=== PATIENT | female | born 1940 | race Two or more races ===

== ENCOUNTER 2017-01-18 19:03 | Inpatient (IN) | payer OTHER, MEDICARE ==
[~2017-01-18] VITALS: Ht 157.5 cm; Wt 47.6 kg
--- NOTE | 2017-01-18 03:59 | NUR ---
RN NOTES PATIENT RECIEVED FROM ER, AWAKE NONVERBAL, VERY LETHERGIC, NON RESPONSIVE, ON 2L NASAL CANULAR NO SINGN OF FACIAL GRAMANCING, HEAD TO TOE ASSESSMENT COMPLETED, SKIN CHECK DONE NOTED WITH BUE AND BLE SKIN DISCOLORATION, SEEN BY YURIY LUNDBERG AND FAMILY UPDATED ON THE CURRENT TREATMENTS ORDERED, PATIENT KEPT CLEAN AND DRY, WELL REPOSITIONED.
--- NOTE | 2017-01-18 19:20 | NUR ---
PT ROD FROM [facility] FOR "MORE ALTERED THAN USUAL" PT NONVERBAL. RR EVEN AND UNLABORED. NO SOB NOTED. NAD NOTED. NO NVD AT THIS TIME. PT NOT DIAPHORETIC. PT GOWNED AND PLACED ON MONITOR. PT NOTED WITH MIDLINE ON RIGHT UPPER ARM. NO S/S INFECTION. PT NOTED WITH GTUBE INTACT AND PATENT. NO S/S INFECTION. PT NOTED WITH LEFT ARM HD SITE, BRUIT AND THRILL NOTED. UNKNOWN LAST HD. PT AFIBRILE DR LEZAMA AT BEDSIDE FOR EVAL. Addendum: 01/18/17 at 1947 by EMERITA CORRECTION: PT HAS IV ON FLIP 24G IV PLACED PER SNF. INTACT AND PATENT. NO S/S INFECTION OR INFILTRATION AT THIS TIME"
--- NOTE | 2017-01-18 19:36 | NUR ---
LAB AT BEDSIDE FOR BLOOD AND BLOOD CX DRAW.
--- NOTE | 2017-01-18 19:46 | NUR ---
CALLED NURSING MOVIE THEATER USHER FOR MIDLINE.
--- NOTE | 2017-01-18 19:48 | NUR ---
PER RN SUP, MID LINE RN ETA 9PM.
[2017-01-18 19:49] LABS: BASOPHILS # (AUTO) 0.5 /CMM (0.0-0.2); BASOPHILS % (AUTO) 3.2 % (0.0-2.0); EOSINOPHILS % (AUTO) 0.2 % (0.0-6.0); HEMATOCRIT 23 % (33-45); HEMOGLOBIN 7.7 g/dL (11.5-14.8); LYMPHOCYTES # (AUTO) 0.7 /CMM (0.8-4.8); LYMPHOCYTES % (AUTO) 4.6 % (20.0-44.0); MEAN CORPUSCULAR HEMOGLOBIN 29 PG (26.0-33.0); MEAN CORPUSCULAR HGB CONC 33 g/dl (31.0-36.0); MEAN CORPUSCULAR VOLUME 87 fL (82-100); MONOCYTES # (AUTO) 1.4 /CMM (0.1-1.30); MONOCYTES % (AUTO) 9.5 % (2.0-12.0); NEUTROPHILS # (AUTO) 11.6 /CMM (1.8-8.9); NEUTROPHILS % (AUTO) 82.5 % (43.0-81.0); PLATELET COUNT (AUTO) 178 /CMM (150-450); RDW COEFFICIENT OF VARIATION 19.7 (11.5-15.0); RED BLOOD CELL COUNT(AUTO) 2.65 MIL/uL (4.0-5.2); WHITE BLOOD COUNT (AUTO) 14.2 K/uL (4.3-11.0)
--- NOTE | 2017-01-18 19:52 | NUR ---
XRAY AT BEDSIDE
--- NOTE | 2017-01-18 19:58 | NUR ---
FAMILY AT BEDSIDE.
[2017-01-18 20:00] LABS: INR 1.09 (0.87-1.13); PROTHROMBIN TIME 11.4 SECS (9.5-12.7)
[2017-01-18 20:03] LABS: ALBUMIN 2.2 g/dL (3.4-5.0); BILIRUBIN,DIRECT 0.1 mg/dL (0.0-0.2); BILIRUBIN,TOTAL 0.5 mg/dL (0.2-1.0); CALCIUM, SERUM 8.2 mg/dL (8.5-10.1); CREATININE 2.9 mg/dL (0.6-1.3); POTASSIUM 4.3 mmol/L (3.5-5.1); TOTAL PROTEIN, SERUM 8.2 g/dL (6.4-8.2)
[2017-01-18 20:05] LABS: TROPONIN I 0.053 ng/mL (0.00-0.056)
--- NOTE | 2017-01-18 20:14 | NUR ---
MIDLINE RN JOB AT BEDSIDE
[2017-01-18 20:23] LABS: LACTIC ACID 1.2 mmol/L (0.4-2.0)
--- NOTE | 2017-01-18 20:23 | NUR ---
PT ASSIGNED TO [place] [id number]
--- NOTE | 2017-01-18 20:36 | NUR ---
FLIP 20G MIDLINE PLACED PER MIDLINE RN JOB. INTACT AND PATENT.
--- NOTE | 2017-01-18 20:39 | NUR ---
SON REFUSED F/C. RISK AND BENEFITS EXPLAINED X3. SON STRONGLY REFUSED AND STATES "SHE RARELY HAS URINE" DR. LEZAMA MADE AWARE.
--- NOTE | 2017-01-18 20:48 | NUR ---
IV removed on gerald 24g . Catheter intact and site benign. Pressure and 4x4 applied to site. No bleeding noted.
[2017-01-18] MEDS ORDERED: CEFEPIME 1 GM in IV D5W 50 ML IV ONE (21:00)
[2017-01-18] MEDS ORDERED: VANCOMYCIN 1 GM in IV D5W 250 ML IV ONE ×2 (21:00→23:00)
--- NOTE | 2017-01-18 21:15 | NUR ---
REPORT GIVEN TO DARLENE WILLIS FOR [facility] BED 120
--- NOTE | 2017-01-18 21:30 | NUR ---
PT TRANSFERED TO [facility] 120 PER ACLS PROTOCOL.
[2017-01-18] MEDS ORDERED: LEVOFLOXACIN 750 MG /D5W 150ML 750 MG in PREMIX 1 EA IV ONE (22:00)
[2017-01-18] MEDS ORDERED: LEVOFLOXACIN 500 MG /D5W 100ML 500 MG in PREMIX 1 EA IV SCH (22:00)
[2017-01-18] MEDS ORDERED: ONDANSETRON HCL/PF 4 MG/2 ML VIAL IVP PRN (22:00)
[2017-01-18] MEDS ORDERED: MAGNESIUM HYDROXIDE 30 ML UDC PO PRN (22:00)
[2017-01-18] MEDS ORDERED: ACETAMINOPHEN 325 MG TABLET PO PRN (22:00)
[2017-01-18] MEDS ORDERED: Z GUARD REMEDY 2 OZ OINT TP PRN (22:00)
[2017-01-18] MEDS ORDERED: MAG HYDROX/AL HYDROX/SIMETH 30 ML UDC PO PRN (22:00)
[2017-01-18] MEDS: CEFEPIME 2 GM in IV D5W 100 ML IV SCH (22:00)
--- NOTE | 2017-01-18 22:00 | NUR ---
RN NOTES: PER DINING ROOM SUPERVISOR YURIY; OK TO CONTINUE GT FEEDINGS PER SNF AND TO GIVE MAXIPIME 2GM ON NEXT SCHEDULE AT 0500 (SINCE ER ONLY GAVE 1GM). TO GIVE LEVAQUIN 750 MG NOW AND THEN 500MG Q48 HRS AFTER
[2017-01-18] MEDS ORDERED: VANCOMYCIN 1 GM VIAL ONE (22:55)
[2017-01-18] MEDS ORDERED: IV D5W 250 ML IV ONE (22:55)
[2017-01-18] MEDS ORDERED: IV SET PRIMARY PUMP SET 1 EA INFUS.SET MC ONE (22:59)
[2017-01-18] MEDS ORDERED: IV NS 0.9% 250 ML IV ONE (22:59)
[2017-01-18] MEDS ORDERED: SECONDARY IV SET 1 EA INFUS.SET MC ONE ×2 (22:59→23:09)
[2017-01-18] MEDS ORDERED: DEXTROSE 50%-WATER 50 ML DISP.SYRIN IV PRN (23:00)
[2017-01-18] MEDS: BLOOD SUGAR DIAGNOSTIC 1 EACH STRIP IN SCH (23:28)
[2017-01-18] MEDS ORDERED: LEVOFLOXACIN 750 MG /D5W 150ML 150 ML IV ONE (23:39)
[2017-01-19] VITALS (11 sets, daily range): BP systolic 121–178; BP diastolic 55–79
[2017-01-19] MEDS ORDERED: BISA10SU8 RC (01:16)
[2017-01-19] MEDS ORDERED: AMLO5TAB2 PO (01:16)
[2017-01-19] MEDS ORDERED: PANT40TA4 PO (01:16)
[2017-01-19] MEDS ORDERED: TIMO5DRO31 OP (01:16)
[2017-01-19] MEDS ORDERED: MULT-70 PO (01:16)
[2017-01-19] MEDS ORDERED: IPRA0.2S9 IH (01:16)
[2017-01-19] MEDS ORDERED: NA P133E RC (01:16)
[2017-01-19] MEDS ORDERED: METO50TA3 PO (01:16)
[2017-01-19] MEDS ORDERED: TRAV5DRO EACHEYE (01:16)
[2017-01-19] MEDS ORDERED: HYDR-3326 GT (01:16)
[2017-01-19] MEDS ORDERED: ACET-868 PO (01:16)
[2017-01-19] MEDS ORDERED: IPRA3AMP IH (01:16)
[2017-01-19] MEDS ORDERED: ONDA-25 PO (01:16)
[2017-01-19] MEDS ORDERED: ZINC220T PO (01:16)
[2017-01-19] MEDS ORDERED: CHOL200026 PO (01:16)
[2017-01-19] MEDS ORDERED: LATA2.5D2 EACHEYE (01:16)
[2017-01-19] MEDS ORDERED: PRED5DRO17 EACHEYE (01:16)
[2017-01-19] MEDS ORDERED: ASCO500T9 PO (01:16)
[2017-01-19] MEDS ORDERED: MAGN400O6 GT (01:16)
[2017-01-19] MEDS ORDERED: ESTROGEL (01:24)
[2017-01-19] MEDS ORDERED: RENAL NOVASOURCE 1,000 ML BOTTLE GT PRN (03:00)
[2017-01-19] MEDS: CEFEPIME 2 GM in IV D5W 100 ML IV SCH (05:00)
[2017-01-19] MEDS ORDERED: IPRATROPIUM NEB FS 0.5 MG/2.5 ML AMPUL.NEB IH PRN (05:30)
[2017-01-19] MEDS ORDERED: NA PHOS,M-B/NA PHOS,DI-BA 1 EA ENEMA RC PRN (05:30)
[2017-01-19] MEDS ORDERED: BISACODYL SUPP (10 MG) 10 MG/SUPP.RECT SUPP.RECT RC PRN (05:30)
[2017-01-19] MEDS ORDERED: ALBUTEROL FS 2.5 MG/0.5 ML VIAL.NEB NEB PRN (05:30)
[2017-01-19] MEDS: INSULIN REGULAR, HUMAN 100 UNIT/ML 3 ML VIAL SQ PRN ×4 (05:54→23:51)
[2017-01-19] MEDS: BLOOD SUGAR DIAGNOSTIC 1 EACH STRIP IN SCH ×4 (05:57→23:47)
[2017-01-19] MEDS ORDERED: CEFEPIME 1 GM VIAL ONE (06:15)
[2017-01-19] MEDS ORDERED: IV D5W 100 ML IV ONE (06:21)
--- NOTE | 2017-01-19 06:54 | NUR ---
RN NOTES WOUND CULTURE COLLECTED, STRAIGHT CATH DONE, PATIENT ANURIC, KEPT PATIENT CLEAN AND DRY ,WELL REPOSITINED, ACU CHECK DONE AND DOCUMENTED.
[2017-01-19 07:22] LABS: BASOPHILS # (AUTO) 0.1 /CMM (0.0-0.2); BASOPHILS % (AUTO) 0.6 % (0.0-2.0); EOSINOPHILS # (AUTO) 0.1 /CMM (0.0-0.7); EOSINOPHILS % (AUTO) 1.1 % (0.0-6.0); HEMATOCRIT 21 % (33-45); LYMPHOCYTES # (AUTO) 0.9 /CMM (0.8-4.8); LYMPHOCYTES % (AUTO) 7.3 % (20.0-44.0); MEAN CORPUSCULAR HEMOGLOBIN 29 PG (26.0-33.0); MEAN CORPUSCULAR HGB CONC 32 g/dl (31.0-36.0); MEAN CORPUSCULAR VOLUME 88 fL (82-100); NEUTROPHILS # (AUTO) 10.6 /CMM (1.8-8.9); PLATELET COUNT (AUTO) 179 /CMM (150-450); RDW COEFFICIENT OF VARIATION 20.5 (11.5-15.0); RED BLOOD CELL COUNT(AUTO) 2.38 MIL/uL (4.0-5.2); WHITE BLOOD COUNT (AUTO) 12.8 K/uL (4.3-11.0)
--- NOTE | 2017-01-19 07:30 | NUR ---
RN NOTES RECEIVED PATIENT IN BED ASLEEP WITH BREATHING NORMAL, EVEN AND UNLABORED. NO SOB NOTED. ON 4L O2 VIA NC, SATURATING WELL. NO ACUTE DISTRESS NOTED. TELE MONITOR REVEALS SR WITH PAC, HR=60. FLIP MIDLINE IS PATENT AND INTACT, ON GT FEED, TOLERATED WELL. NO RESIDUAL NOTED. ASPIRATION PRECAUTION TAKEN. HOB ELEVATED. KEPT CLEAN, DRY AND COMFORTABLE. ALL NEEDS ATTENDED. SAFETY MEASURE OBSERVED. CALL LIGHT WITH IN REACH. WILL CONT TO MONITOR.
[2017-01-19 07:33] LABS: HEMOGLOBIN 6.8 g/dL (11.5-14.8)
[2017-01-19 07:56] LABS: THYROID STIMULATING HORMONE 19.734 uIU/mL (0.358-3.74)
[2017-01-19 07:59] LABS: CALCIUM, SERUM 8.2 mg/dL (8.5-10.1); CREATININE 2.9 mg/dL (0.6-1.3); MAGNESIUM 2.4 mg/dL (1.8-2.4); PHOSPHORUS 3.1 mg/dL (2.5-4.9); POTASSIUM 4.3 mmol/L (3.5-5.1)
[2017-01-19] MEDS ORDERED: VANCOMYCIN 500 MG in IV D5W 100 ML IV PRN (09:00)
[2017-01-19] MEDS ORDERED: MULTIVITAMINS,THERAPEUTIC 1 UDTAB TABLET PO SCH (09:00)
[2017-01-19 09:04] LABS: BAND % (MANUAL) 6 % (0.0-5.0); LYMPHOCYTES % (MANUAL) 6 % (16-48); MONOCYTES % (MANUAL) 5 % (0-11.0); NEUTROPHILS % (MANUAL) 83 (42-76)
[2017-01-19 09:05] LABS: ANISOCYTOSIS 1+; HYPOCHROMASIA 1+; PLATELET ESTIMATE ADEQUATE
[2017-01-19] MEDS: ASCORBIC ACID 500 MG TABLET PO SCH (09:09)
[2017-01-19] MEDS: CHOLECALCIFEROL 1,000 UNIT TABLET (VIT D3) PO SCH (09:09)
[2017-01-19] MEDS: PANTOPRAZOLE 40 MG TABLET.DR PO SCH (09:10)
[2017-01-19] MEDS: ZINC SULFATE 220 MG CAPSULE PO SCH (09:10)
[2017-01-19] MEDS: METOPROLOL TARTRATE 50 MG TABLET PO SCH ×2 (09:12→17:58)
[2017-01-19] MEDS: AMLODIPINE BESYLATE 5 MG TABLET PO SCH (09:13)
[2017-01-19] MEDS ORDERED: TIMOLOL 0.25% SOL OPHTH 10 ML BOTTLE RIGHTEYE SCH (10:00)
[2017-01-19] MEDS: PIPERACILLIN /TAZOBACTAM 2.25 G in IV D5W 50 ML IV SCH ×2 (10:21→21:38)
[2017-01-19] MEDS: GENTAMICIN OPTH OINT 0.3% 3.5 G TUBE RIGHTEYE SCH ×3 (11:14→21:39)
[2017-01-19] MEDS: prednisoLONE ACETATE 1% SUSP 5 ML BOTTLE EACHEYE SCH ×3 (12:27→21:38)
[2017-01-19] MEDS ORDERED: prednisoLONE ACETATE 1% SUSP 5 ML BOTTLE EACHEYE SCH (13:00)
[2017-01-19] MEDS ORDERED: BLOOD IV SET 1 EA INFUS.SET MC ONE (14:29)
--- NOTE | 2017-01-19 15:37 | NUR ---
RN NOTES PATIENT RECEIVED 2 UNITS OF PRBC WITH HEMODIALYSIS. NO ADVERSE REACTION NOTED. VITAL SIGN STABLE. TOLERATED. NO SOB NOTED. DIALYSIS NURSE AT BEDSIDE. WILL CONT TO MONITOR.
[2017-01-19] MEDS: TIMOLOL 0.25% SOL OPHTH 10 ML BOTTLE EACHEYE SCH (18:00)
--- NOTE | 2017-01-19 18:47 | NUR ---
RN NOTES RECEIVED ORDERS FROM DR VASQUEZ TO D/C MULTIVITAMIN AND START NEPHROVITE 1 TAB PO DAILY AND TO START GT FEED @ 40CC/HR X24HRS PER DIETARY RECOMMENDATIONS. ORDER NOTED AND CARRIED OUT. WILL CONT TO MONITOR.
--- NOTE | 2017-01-19 19:38 | NUR ---
RN NOTES PATIENT ENDORSED TO NEXT SHIFT IN STABLE CONDITION FOR CONTINUITY OF CARE. NO SIGNIFICANT CHANGES NOTED. KEPT CLEAN, DRY AND COMFORTABLE. ALL NEEDS ATTENDED. CALL LIGHT WITH IN REACH. SAFETY MEASURE OBSERVED. WILL CONT TO MONITOR.
--- NOTE | 2017-01-19 21:30 | NUR ---
RN WILLIAM DF PT,S SON AT BEDSIDE REPORTS MOTHER IS HAVING MILD PAIN, I MEDICATED PT WITH 1 TAB NORCO 5/325 VIA GT. PT NON VERBAL OBTUNDED WITHDRAWS TO TACTILE STIMULATION. DOES NOT FOLLOW COMMANDS DOES NOT OPEN EYES. PER FAMILY AT BEDSIDE THIS IS PT,S BASELINE NEURO STATUS VSS NAD NOTED.
[2017-01-19] MEDS: LATANOPROST EYE DROP 0.005% 2.5 ML BOTTLE EACHEYE SCH (21:39)
[2017-01-19] MEDS ORDERED: CEFEPIME 2 GM in IV D5W 100 ML IV SCH (23:00)
[2017-01-20] VITALS: BP 156/55
--- NOTE | 2017-01-20 00:05 | NUR ---
RN WILLIAM DF PT ACCU CHECK OF 182 PT COVERED PER SLIDING SCALE 3 UNITS RISS.
[2017-01-20 04:00] VITALS: BP 146/56
[2017-01-20] MEDS ORDERED: IV NS 0.9% 250 ML IV ONE (05:20)
[2017-01-20] MEDS: RENAL NOVASOURCE 1,000 ML BOTTLE GT PRN (05:26)
[2017-01-20] MEDS: PIPERACILLIN /TAZOBACTAM 2.25 G in IV D5W 50 ML IV SCH ×3 (05:26→21:41)
[2017-01-20] MEDS: BLOOD SUGAR DIAGNOSTIC 1 EACH STRIP IN SCH ×4 (05:42→23:36)
--- NOTE | 2017-01-20 05:43 | NUR ---
RN WILLIAM DF ACCU CHECK OF 96 NO COVERAGE PER SS PT TOLERATING TUBE FEEDING NO RESIDUALS NOTED.
[2017-01-20] MEDS: PANTOPRAZOLE 40 MG TABLET.DR PO SCH (06:35)
--- NOTE | 2017-01-20 07:30 | NUR ---
RN NOTES RECEIVED PATIENT IN BED WITH BREATHING NORMAL, EVEN AND UNLABORED. NO SOB NOTED. ON 4L O2 VIA NC, SATURATING WELL. NO ACUTE DISTRESS NOTED. TELE MONITOR REVEALS SR WITH PAC, HR=62. FLIP MIDLINE IS PATENT AND INTACT, ON GT FEED, TOLERATED WELL. NO RESIDUAL NOTED. ASPIRATION PRECAUTION TAKEN. HOB ELEVATED. KEPT CLEAN, DRY AND COMFORTABLE. ALL NEEDS ATTENDED. SAFETY MEASURE OBSERVED. CALL LIGHT WITH IN REACH. WILL CONT TO MONITOR.
[2017-01-20 07:34] LABS: BASOPHILS % (AUTO) 0.3 % (0.0-2.0); EOSINOPHILS # (AUTO) 0.1 /CMM (0.0-0.7); EOSINOPHILS % (AUTO) 1.2 % (0.0-6.0); HEMATOCRIT 29 % (33-45); HEMOGLOBIN 9.6 g/dL (11.5-14.8); LYMPHOCYTES # (AUTO) 0.8 /CMM (0.8-4.8); LYMPHOCYTES % (AUTO) 9.7 % (20.0-44.0); MEAN CORPUSCULAR HEMOGLOBIN 30 PG (26.0-33.0); MEAN CORPUSCULAR HGB CONC 33 g/dl (31.0-36.0); MEAN CORPUSCULAR VOLUME 89 fL (82-100); MONOCYTES # (AUTO) 1.2 /CMM (0.1-1.30); MONOCYTES % (AUTO) 13.7 % (2.0-12.0); NEUTROPHILS # (AUTO) 6.5 /CMM (1.8-8.9); NEUTROPHILS % (AUTO) 75.1 % (43.0-81.0); PLATELET COUNT (AUTO) 146 /CMM (150-450); RDW COEFFICIENT OF VARIATION 18.6 (11.5-15.0); WHITE BLOOD COUNT (AUTO) 8.7 K/uL (4.3-11.0)
[2017-01-20 07:40] LABS: CREATININE 2.1 mg/dL (0.6-1.3); POTASSIUM 3.6 mmol/L (3.5-5.1)
[2017-01-20 08:00] VITALS: BP 168/53
--- NOTE | 2017-01-20 08:45 | NUR ---
WOUND CARE CONSULT: PT PRESENTS WITH MULTIPLE WOUNDS AND SKIN ISSUES INCLUDING UNSTAGEABLE ULCER TO SACRUM AND UPPER EXTREMITY EDEMA WITH VERY FRAGILE SKIN THAT TEARS EASILY. PT ON SIRI ISOFLEX LOW AIRLOSS BED. ALL SKIN AND WOUND RECOMMENDATIONS DISCUSSED WITH NURSING STAFF. PT FOLLOWED BY DR FAUST FOR WOUNDS. WILL SEE PRRebeca MARTIN IN AGREEMENT WITH PLAN OF CARE.
[2017-01-20] MEDS: ASCORBIC ACID 500 MG TABLET PO SCH (09:31)
[2017-01-20] MEDS: CHOLECALCIFEROL 1,000 UNIT TABLET (VIT D3) PO SCH (09:31)
[2017-01-20] MEDS: AMLODIPINE BESYLATE 5 MG TABLET PO SCH (09:31)
[2017-01-20] MEDS: VIT B CMPLX 3/FA/VIT C/BIOTIN 1 TAB TABLET PO SCH (09:31)
[2017-01-20] MEDS: ZINC SULFATE 220 MG CAPSULE PO SCH (09:31)
[2017-01-20] MEDS: METOPROLOL TARTRATE 50 MG TABLET PO SCH ×2 (09:32→17:15)
[2017-01-20] MEDS: GENTAMICIN OPTH OINT 0.3% 3.5 G TUBE RIGHTEYE SCH ×3 (09:32→17:16)
[2017-01-20] MEDS: TIMOLOL 0.25% SOL OPHTH 10 ML BOTTLE EACHEYE SCH ×2 (09:33→17:16)
[2017-01-20] MEDS: prednisoLONE ACETATE 1% SUSP 5 ML BOTTLE EACHEYE SCH ×4 (09:33→21:42)
[2017-01-20] MEDS: NEOMY SULF/BACITRAC ZN/POLY 15 GM TUBE TP SCH (09:36)
[2017-01-20] MEDS: CADEXOMER IODINE 40 GM TUBE TP SCH (09:36)
[2017-01-20 12:00] VITALS: BP_SYST 165; BP_SYST 175; BP_DIAS 45
[2017-01-20] MEDS: INSULIN REGULAR, HUMAN 100 UNIT/ML 3 ML VIAL SQ PRN ×3 (12:45→23:37)
[2017-01-20 16:00] VITALS: BP 158/52
[2017-01-20 20:00] VITALS: BP 152/57
--- NOTE | 2017-01-20 20:00 | NUR ---
RN NOTES RECEIVED RN AROUSABLE TO PAIN BUT NON VERBAL, MOANS; ON NC AT 3 LPM; SB ON MONITOR; LEFT UA HD ACCESS (MEDIAL/ANT ASPECT) (+)THRILL AND BRUIT; IV ACCESS RIGHT UA, DRESSING CLEAN,DRY,INTACT; DIAPER ON; WITH HEELS OFFLOADED; MINIMAL BLEEDING ON LEFT UA LATERAL ASPECT, CHANGED DRESSING, COVERED WITH MEPILEX AND KERLIX; REPOSITIONED PX WITH HOB AT 30 ANGLE; SUCTIONED ORALLY; G TUBE TO TF, TOLERATED FEEDING WELL; FAMILY AT BEDSIDE; PX RESP EVEN AND UNLABORE AND NOT IN DISTRESS.
[2017-01-20] MEDS: HYDROCODONE/APAP 5/325MG 1 EACH TABLET PO PRN (21:41)
[2017-01-20] MEDS: LATANOPROST EYE DROP 0.005% 2.5 ML BOTTLE EACHEYE SCH (21:42)
[2017-01-20] MEDS ORDERED: LEVOFLOXACIN 500 MG /D5W 100ML 500 MG in PREMIX 1 EA IV SCH (22:00)
[2017-01-21] VITALS (9 sets, daily range): BP systolic 137–181; BP diastolic 38–98
--- NOTE | 2017-01-21 00:53 | NUR ---
RN NOTES CONDITION AND NEURO STATUS UNCHANGED; REPOSITIONED; TF TOLERATED. CONTINUED TO MONITOR.
[2017-01-21] MEDS ORDERED: IV NS 0.9% 250 ML IV ONE (01:04)
[2017-01-21] MEDS: RENAL NOVASOURCE 1,000 ML BOTTLE GT PRN (01:37)
--- NOTE | 2017-01-21 04:16 | NUR ---
RN NOTES CONDITION AND NEURO STATUS UNCHANGED; REPOSITIONED; TF TOLERATED.
[2017-01-21] MEDS: PIPERACILLIN /TAZOBACTAM 2.25 G in IV D5W 50 ML IV SCH ×3 (05:40→22:01)
[2017-01-21] MEDS: INSULIN REGULAR, HUMAN 100 UNIT/ML 3 ML VIAL SQ PRN ×2 (05:41→18:25)
[2017-01-21] MEDS: BLOOD SUGAR DIAGNOSTIC 1 EACH STRIP IN SCH ×3 (05:42→17:04)
--- NOTE | 2017-01-21 06:27 | NUR ---
RN NOTES CONDITION AND NEURO STATUS UNCHANGED; BEDBATH RENDERED; CHANGED DRESSING ON SACRAL AREA, RIGHT WRIST AND LEFT UA FOLLOWING MD ORDER, ALL DRESSINGS CLEAN,DRY,INTACT; NO NEW SKIN BREAKDOWN; IV ACCESS INTACT AND PATENT; TF TOLERATED; REPOSITIONED IN BED; RESP EVEN AND UNLABORED; NOT IN DISTRESS; WILL ENDORSE TO NEXT RN.
[2017-01-21 06:36] LABS: BASOPHILS % (AUTO) 0.6 % (0.0-2.0); EOSINOPHILS # (AUTO) 0.1 /CMM (0.0-0.7); EOSINOPHILS % (AUTO) 1.1 % (0.0-6.0); HEMATOCRIT 27 % (33-45); LYMPHOCYTES # (AUTO) 0.9 /CMM (0.8-4.8); LYMPHOCYTES % (AUTO) 11.7 % (20.0-44.0); MEAN CORPUSCULAR HEMOGLOBIN 30 PG (26.0-33.0); MEAN CORPUSCULAR HGB CONC 33 g/dl (31.0-36.0); MEAN CORPUSCULAR VOLUME 88 fL (82-100); MONOCYTES # (AUTO) 1.2 /CMM (0.1-1.30); MONOCYTES % (AUTO) 15.2 % (2.0-12.0); NEUTROPHILS # (AUTO) 5.8 /CMM (1.8-8.9); NEUTROPHILS % (AUTO) 71.4 % (43.0-81.0); PLATELET COUNT (AUTO) 160 /CMM (150-450); RDW COEFFICIENT OF VARIATION 19.9 (11.5-15.0); RED BLOOD CELL COUNT(AUTO) 3.05 MIL/uL (4.0-5.2); WHITE BLOOD COUNT (AUTO) 8.1 K/uL (4.3-11.0)
--- NOTE | 2017-01-21 07:28 | NUR ---
WILLIAM RN NOTE PATIENT, IN BED .ALL NEEDS ATTENDED, RESTING COMFORTABLY AT THIS TIME, ON TELE SB HR 55 ,ON ISOFLEX BED ON G TUBE FEEDING ,KEEP HOB ELEVATED, RT UPPER MID LINE BED IN LOWEST AND LOCKED POSITION , ON 3 L NC , CALL LIGHT WITHIN REACH , NO SOB NOTED ,WILL CONT TO MONITOR CLOSELY
[2017-01-21] MEDS ORDERED: LEVO500T15 PO (08:10)
[2017-01-21] MEDS ORDERED: METR500T PO (08:10)
[2017-01-21 08:14] LABS: ALBUMIN 1.8 g/dL (3.4-5.0); BILIRUBIN,TOTAL 0.5 mg/dL (0.2-1.0); CALCIUM, SERUM 7.8 mg/dL (8.5-10.1); CREATININE 2.6 mg/dL (0.6-1.3); MAGNESIUM 2.1 mg/dL (1.8-2.4); PHOSPHORUS 3.4 mg/dL (2.5-4.9); POTASSIUM 3.9 mmol/L (3.5-5.1); TOTAL PROTEIN, SERUM 7.3 g/dL (6.4-8.2)
[2017-01-21] MEDS: prednisoLONE ACETATE 1% SUSP 5 ML BOTTLE EACHEYE SCH ×4 (08:19→22:01)
[2017-01-21] MEDS: PANTOPRAZOLE 40 MG TABLET.DR PO SCH (08:19)
[2017-01-21] MEDS: ASCORBIC ACID 500 MG TABLET PO SCH (08:19)
[2017-01-21] MEDS: ZINC SULFATE 220 MG CAPSULE PO SCH (08:19)
[2017-01-21] MEDS: CHOLECALCIFEROL 1,000 UNIT TABLET (VIT D3) PO SCH (08:19)
[2017-01-21] MEDS: VIT B CMPLX 3/FA/VIT C/BIOTIN 1 TAB TABLET PO SCH (08:19)
[2017-01-21] MEDS: NEOMY SULF/BACITRAC ZN/POLY 15 GM TUBE TP SCH (08:20)
[2017-01-21] MEDS: LATANOPROST EYE DROP 0.005% 2.5 ML BOTTLE EACHEYE SCH (08:20)
[2017-01-21] MEDS: METOPROLOL TARTRATE 50 MG TABLET PO SCH ×2 (08:21→16:53)
[2017-01-21] MEDS: AMLODIPINE BESYLATE 5 MG TABLET PO SCH (08:22)
[2017-01-21] MEDS: GENTAMICIN OPTH OINT 0.3% 3.5 G TUBE RIGHTEYE SCH ×3 (08:24→16:54)
[2017-01-21] MEDS: CADEXOMER IODINE 40 GM TUBE TP SCH (08:24)
[2017-01-21] MEDS: TIMOLOL 0.25% SOL OPHTH 10 ML BOTTLE EACHEYE SCH ×2 (08:24→16:53)
--- NOTE | 2017-01-21 09:40 | NUR ---
W[facility]IAM RN NOTE SEEN BY DR VASQUEZ WITH ORDER TO D\C SNF , CHARGE NURSE NOTIFIED NO HD AT THIS TIME PER DR REN ORDER PER HD NURSE
--- NOTE | 2017-01-21 13:00 | NUR ---
BALLET SOLOIST NOTE PER DR REN HOLD DISCHARGE TILL TOMORROW MORNING OK TO HAVE HD AT THIS TIME
--- NOTE | 2017-01-21 13:26 | NUR ---
ER REGISTRAR NOTE HD STARTED ORDERED
[2017-01-21] MEDS: HYDROCODONE/APAP 5/325MG 1 EACH TABLET PO PRN (15:38)
--- NOTE | 2017-01-21 15:57 | NUR ---
AIR ANTISUBMARINE OFFICER NOTE HD COMPLETED , BP 159/64 ,REMOVED 1.8 , OF FLUIDS
--- NOTE | 2017-01-21 15:58 | NUR ---
AMMONIA SOLUTION PREPARER NOTE NORCO PO GIVEN BP 181/65 PAIN LEVEL 9\10 BY FACE SCALE, WILL MONITOR CLOSELY , DAUGHTER AT BEDSIDE , MOUTH CARE DONE, KEEP CLEAN DRY
--- NOTE | 2017-01-21 17:06 | NUR ---
MS RN NOTE BLOOD SUGAR 157 MG\ DL ENDORSED CARE TO ILSA RN REPORT GIVEN
--- NOTE | 2017-01-21 19:20 | NUR ---
RN INITIAL NOTE RECEIVED PT IN NO ACUTE DISTRESS IN BED. PT IS NON VERBAL, OPENS EYE SPONTANEOUSLY. PT IS ON O2 VIA NC @ 3LPM AND TOLERATING WELL WITH O2 SAT @ 98%. PT HAS GTUBE THAT IS CLEAN DRY AND INTACT WITH NOVASOURCE @ 40ML/HR AND TOLERATING WELL. PT HAS FLIP MIDLINE THAT IS CLEAN DRY AND INTACT WITH SALINE @ TKO. PT HAS LYNNE HD ACCESS THAT IS CLEAN DRY AND INTACT. BED IN LOW LOCK POSITION WITH RAILS UP X 2. CALL LIGHT WITHIN REACH AND ALL SAFETY MEASURES ENSURED AND CARRIED OUT. WILL CONTINUE TO MONITOR PT.
[2017-01-22] MEDS: BLOOD SUGAR DIAGNOSTIC 1 EACH STRIP IN SCH ×2 (00:06→05:38)
[2017-01-22 04:00] VITALS: BP_SYST 102; BP_SYST 151; BP_SYST 157; BP_DIAS 52; BP_DIAS 69
[2017-01-22] MEDS: PIPERACILLIN /TAZOBACTAM 2.25 G in IV D5W 50 ML IV SCH (05:38)
[2017-01-22] MEDS: INSULIN REGULAR, HUMAN 100 UNIT/ML 3 ML VIAL SQ PRN (05:41)
[2017-01-22] MEDS: PANTOPRAZOLE 40 MG TABLET.DR PO SCH (06:39)
[2017-01-22] MEDS: HYDROCODONE/APAP 5/325MG 1 EACH TABLET PO PRN (06:39)
--- NOTE | 2017-01-22 07:20 | NUR ---
MS RN OPENING NOTE RECEIVED PT FROM NIGHTSHIFT NURSE IN STABLE CONDITION. PT IS NON VERBAL, OPENS EYE SPONTANEOUSLY. PT IS ON O2 VIA NC @ 3LPM AND TOLERATING WELL WITH O2 SAT @ 98%. PT HAS GTUBE THAT IS CLEAN DRY AND INTACT WITH NOVASOURCE @ 40ML/HR AND TOLERATING WELL. IV ON FLIP MIDLINE, INTACT AND PATENT WITH NS AT 5ML/HR TKO. PT HAS LYNNE HD ACCESS THAT IS CLEAN DRY AND INTACT.WILL CONTINUE TO MONITOR PT.
--- NOTE | 2017-01-22 07:30 | NUR ---
RN NOTE TRIED MULTIPLE TIMES TO CONTACT 4 SEASON TO GIVE REPORT. UNABLE TO CONTACT RECEIVING RN TO GIVE REPORT. WILL ENDORSE TO AM RN.
--- NOTE | 2017-01-22 07:37 | NUR ---
RN CLOSING NOTE PT REMAINS IN NO ACUTE DISTRESS IN BED. PT DID NOT HAVE ANY SIGNIFICANT CHANGE IN CONDITION. ALL NEEDS MET ALL ORDERS CARRIED OUT. WILL ENDORSE TO AM RN FOR CONTINUITY OF CARE.
[2017-01-22 08:00] VITALS: BP 159/73
[2017-01-22 09:01] VITALS: BP 159/73
[2017-01-22] MEDS: VIT B CMPLX 3/FA/VIT C/BIOTIN 1 TAB TABLET PO SCH (09:01)
[2017-01-22] MEDS: CHOLECALCIFEROL 1,000 UNIT TABLET (VIT D3) PO SCH (09:01)
[2017-01-22] MEDS: METOPROLOL TARTRATE 50 MG TABLET PO SCH (09:01)
[2017-01-22] MEDS: ZINC SULFATE 220 MG CAPSULE PO SCH (09:01)
[2017-01-22] MEDS: ASCORBIC ACID 500 MG TABLET PO SCH (09:01)
[2017-01-22] MEDS: AMLODIPINE BESYLATE 5 MG TABLET PO SCH (09:01)
[2017-01-22] MEDS: GENTAMICIN OPTH OINT 0.3% 3.5 G TUBE RIGHTEYE SCH (09:02)
[2017-01-22] MEDS: TIMOLOL 0.25% SOL OPHTH 10 ML BOTTLE EACHEYE SCH (09:02)
[2017-01-22] MEDS: prednisoLONE ACETATE 1% SUSP 5 ML BOTTLE EACHEYE SCH (09:03)
[2017-01-22] MEDS: CADEXOMER IODINE 40 GM TUBE TP SCH (09:04)
[2017-01-22] MEDS: NEOMY SULF/BACITRAC ZN/POLY 15 GM TUBE TP SCH (09:04)
--- NOTE | 2017-01-22 09:28 | NUR ---
MS RN CLOSING NOTES PT. LEFT UNIT VIA AMBULANCE IN STABLE CONDITION. SHE WAS SAFELY TRANSPORTED FROM HOSPITAL BED TO [facility]. ALL MORNING MEDS GIVEN AND NEEDS CARED FOR.
== END 2017-01-22 09:32 | DRG 720 ==
LOC: ER 19:06 → TELE1 21:14 → TELE-TD 22:52 → MEDSG1 01-21 15:27
PROVIDERS: ADMIT Internal Medicine; ATTEND Contractor
PROC: 05H633Z Insertion of Infusion Device into Left Subclavian Vein, Percutaneous Approach (ICD-10-PCS; principal; 2017-01-18)
PROC: 5A1D60Z (ICD-10-PCS; 2017-01-19)
PROC: 30233N1 Transfusion of Nonautologous Red Blood Cells into Peripheral Vein, Percutaneous Approach (ICD-10-PCS; 2017-01-19)
DX: A41.9 Sepsis, unspecified organism (principal); J69.0 Pneumonitis due to inhalation of food and vomit; G93.41 Metabolic encephalopathy; I13.2 Hypertensive heart and chronic kidney disease with heart failure and with stage 5 chronic kidney disease, or end stage renal disease; G82.50 Quadriplegia, unspecified; L89.159 Pressure ulcer of sacral region, unspecified stage; N17.9 Acute kidney failure, unspecified; E44.0 Moderate protein-calorie malnutrition; E11.22 Type 2 diabetes mellitus with diabetic chronic kidney disease; N18.6 End stage renal disease; E11.65 Type 2 diabetes mellitus with hyperglycemia; R13.10 Dysphagia, unspecified; I50.9 Heart failure, unspecified; Z66 Do not resuscitate; Z93.1 Gastrostomy status; Z99.2 Dependence on renal dialysis; I48.91 Unspecified atrial fibrillation; K21.9 Gastro-esophageal reflux disease without esophagitis; N39.0 Urinary tract infection, site not specified; I73.9 Peripheral vascular disease, unspecified; D63.8 Anemia in other chronic diseases classified elsewhere; H10.9 Unspecified conjunctivitis; H40.9 Unspecified glaucoma; F03.90 Unspecified dementia, unspecified severity, without behavioral disturbance, psychotic disturbance, mood disturbance, and anxiety; E11.621 Type 2 diabetes mellitus with foot ulcer; J98.11 Atelectasis; L97.519 Non-pressure chronic ulcer of other part of right foot with unspecified severity
CPT/HCPCS: 36415; 36569; 71010-TC; 80048-TC; 80053-TC; 80061-TC; 80076-TC; 82962-TC; 83605-TC; 83735-TC; 84100-TC; 84443-TC; 84484-TC; 85025-TC; 85730-TC; 86850-TC; 86921-TC; 87040-TC; 87070-TC; 87081-TC; 87186-TC; 93307-TC; 93970-TC; 94799-TC; A4216; A4606; A6253; A6402; A6403; C1769; J0692; J1815; J1956; J2543; J3370; J7050; J7060; P9016-BL; Z7610

== ENCOUNTER 2017-01-31 20:53 | Inpatient (IN) | payer OTHER, MEDICARE ==
[~2017-01-31] VITALS: Ht 157.5 cm; Wt 46.7 kg
[~2017-01-31 20:53] MED LIST: ACET-868 PO; AMLO5TAB2 PO; ASCO500T9 PO; BISA10SU8 RC; CHOL200026 PO; ESTROGEL; HYDR-3326 GT; IPRA0.2S9 IH; IPRA3AMP IH; LATA2.5D2 EACHEYE; LEVO500T15 PO; MAGN400O6 GT; METO50TA3 PO; METR500T PO; MULT-70 PO; NA P133E RC; ONDA-25 PO; PANT40TA4 PO; PRED5DRO17 EACHEYE; TIMO5DRO31 OP; TRAV5DRO EACHEYE; ZINC220T PO
--- NOTE | 2017-01-31 21:00 | NUR ---
TO BED 7 A 76 YO FEMALE BIBRA WITH C/O OF SOB AND "DESATURATING IN THE 80'S" ON ROOM AIR." UPON ARRIVAL TO ER, PATIENT IS OBTUNDED, OPENS EYES, NONVERBAL, RESPONSIVE TO LIGHT PAIN. DYSPNEIC, LABORED BREATHING NOTED. ON 15LPM VIA NONREBREATHER AND SATTING AT 97%. DIMINISHED CAROLYN LUNG SOUNDS HEARD. KEPT HOB ELEVATED. CARDIAC MONITORING ON. DNR/COMFORT MEASURES ONLY IN POLST. INITIATED COMFORT MEASURES. AWAITING FOR ER MD LEE.
[2017-01-31 21:54] LABS: BASOPHILS # (AUTO) 0.1 /CMM (0.0-0.2); BASOPHILS % (AUTO) 1.1 % (0.0-2.0); EOSINOPHILS % (AUTO) 0.1 % (0.0-6.0); HEMATOCRIT 30 % (33-45); HEMOGLOBIN 9.7 g/dL (11.5-14.8); LYMPHOCYTES # (AUTO) 1.4 /CMM (0.8-4.8); LYMPHOCYTES % (AUTO) 16.8 % (20.0-44.0); MEAN CORPUSCULAR HEMOGLOBIN 29 PG (26.0-33.0); MEAN CORPUSCULAR HGB CONC 33 g/dl (31.0-36.0); MEAN CORPUSCULAR VOLUME 89 fL (82-100); MONOCYTES # (AUTO) 1.5 /CMM (0.1-1.30); MONOCYTES % (AUTO) 18.6 % (2.0-12.0); NEUTROPHILS # (AUTO) 5.3 /CMM (1.8-8.9); NEUTROPHILS % (AUTO) 63.4 % (43.0-81.0); PLATELET COUNT (AUTO) 172 /CMM (150-450); RDW COEFFICIENT OF VARIATION 19.3 (11.5-15.0); RED BLOOD CELL COUNT(AUTO) 3.31 MIL/uL (4.0-5.2); WHITE BLOOD COUNT (AUTO) 8.3 K/uL (4.3-11.0)
[2017-01-31 21:57] LABS: CALCIUM, SERUM 9.1 mg/dL (8.5-10.1); CREATININE 1.3 mg/dL (0.6-1.3); POTASSIUM 3.5 mmol/L (3.5-5.1)
[2017-01-31 22:02] LABS: INR 1.08 (0.87-1.13); PROTHROMBIN TIME 11.2 SECS (9.5-12.7)
[2017-01-31 22:03] LABS: ALBUMIN 2.5 g/dL (3.4-5.0); BILIRUBIN,DIRECT 0.2 mg/dL (0.0-0.2); BILIRUBIN,TOTAL 0.6 mg/dL (0.2-1.0); TOTAL PROTEIN, SERUM 8.9 g/dL (6.4-8.2)
[2017-01-31 22:05] LABS: TROPONIN I 0.021 ng/mL (0.00-0.056)
--- NOTE | 2017-01-31 23:06 | NUR ---
STARTED A SALINE LOCK ON THE RIGHT WRIST, G22.
--- NOTE | 2017-01-31 23:06 | NUR ---
patient to ct.
--- NOTE | 2017-01-31 23:17 | NUR ---
back from ct
[2017-01-31] MEDS ORDERED: GENT5DRO4 RIGHTEYE (23:49)
[2017-01-31] MEDS ORDERED: FOLI0.8T2 GT (23:49)
[2017-02-01] VITALS (76 sets, daily range): BP systolic 56–164; BP diastolic 16–79
[2017-02-01] MEDS ORDERED: VANCOMYCIN 1 GM in IV D5W 250 ML IV ONE ×2
[2017-02-01] MEDS ORDERED: PIPERACILLIN /TAZOBACTAM 3.375 G in IV D5W 50 ML IV ONE ×2
[2017-02-01] MEDS ORDERED: IV SET PRIMARY PUMP SET 1 EA INFUS.SET MC ONE ×4 (00:01→13:02)
[2017-02-01] MEDS ORDERED: VANCOMYCIN 1 GM VIAL ONE (00:01)
[2017-02-01] MEDS ORDERED: PIPERACILLIN /TAZOBACTAM 3.375 G VIAL IV ONE (00:01)
--- NOTE | 2017-02-01 00:03 | NUR ---
TAMIKA SOSAII AT BEDSIDE WITH SON RE TREATMENT PLANS FOR PATIENT. SON DECIDED FOR AIRWAY INTUBATION.
[2017-02-01] MEDS ORDERED: PROPOFOL 100 ML IV ONE (00:34)
--- NOTE | 2017-02-01 00:45 | NUR ---
0034 - ETOMIDATE 10MG AND VECURONIM 10MG IVP GIVEN PRIOR TO INTUBATION UNDER DR MENDIETA. 0036 - PATIENT IS INTUBATED WITH 7.5 ETT AT 24 ON THE LIP, CO2 DETECTOR NOTED WITH COLOR CHANGE, CAROLYN LUNGS SOUND HEARD. PATIENT THEN CONNECTED TO [facility] VENT, [place]HEL[place] WELL TO SETTINGS, SATTING AT 99-100% AT THIS TIME. MAINTAINED PATENT AIRWAY.
--- NOTE | 2017-02-01 00:50 | NUR ---
DR MENDIETA AT BEDSIDE TO ATTEMPT TRIPLE LUMEN CATH INSERTION ON THE RIGHT FEMORAL VEIN.
[2017-02-01] MEDS ORDERED: PROPOFOL 100 ML IV PRN (01:00)
--- NOTE | 2017-02-01 01:45 | NUR ---
RN/ICU- ADMITTED THIS 76 Y/O FEMALE FROM ER PER ACLS PROTOCOL. NURSING FOCUS:ALTERED RESPIRATORY STATUS R/T DIAGNOSIS:ACUTE RESPIRATORY FAILURE.ROUTINE ICU ADMISSION CARE INITIATED.PT. ON CONTINUOUS BAGGING PER ETT, THEN IMMEDIATELY HOOKED UP TO VENT . W/ THE FOLLOWING SETTINGS.AC-16, VT-400, FIO2-40%, PEEP +5. SATS.-95%. EKG SR. W/ BP-160/77. NEURO ALEXIS, PT. IS UNRESPONSIVE, PUPILS ARE IRREGULAR , CLOUDY, PT. W/ H/O GLAUCOMA. PT. W/ MULTIPLE SKIN ISSUES. INITIAL WOUND CARE INITIATED PER PROTOCOL .REFER TO SKIN PROBLEM ASSESSMENT FORM AND PHOTO FOR DETAILS.WOUND CARE CONSULT DONE.PT. IS A FULL CODE. AFEBRILE. NO S/S OF DISTRESS OR PAIN USING THE FLACC PAIN SCALE. ASSESSMENT.
--- NOTE | 2017-02-01 01:50 | NUR ---
TRANSPORTED TO ICU RM 255 VIA ALS PROTOCOL, ENDORSED TO ICU SHILPI SANTACRUZ FOR AGUSTIN. NO INCIDENT NOTED.
[2017-02-01] MEDS ORDERED: VECURONIUM 10 MG VIAL IV ONE ×2 (02:00→07:00)
[2017-02-01] MEDS ORDERED: ETOMIDATE 2 MG/ML VIAL IV ONE ×2 (02:00→07:00)
--- NOTE | 2017-02-01 02:30 | NUR ---
RN/ICU- DR. VASQUEZ NOTIFIED OF PT. ADMISSION AND STATUS. W/ INITIAL ADMISSION ORDERS RECEIVED VIA RBTO.
--- NOTE | 2017-02-01 02:40 | NUR ---
RN/ICU- PT. NOTED TO DESATURATE TO THE 88%, ALTHOUGH SATS. WAVE FORM NOT ACCURATE, RT HERE TO ASSESS PT. FIO2 INCREASED FROM 40% TO 100%.WILL MONITOR CLOSELY AND WILL REFER ACCORDINGLY, ALL EXTREMITIES ARE COLD.
[2017-02-01] MEDS ORDERED: IV PREMIX 0.45% NS + KCL 1,000 ML IV ONE (02:55)
--- NOTE | 2017-02-01 03:00 | NUR ---
RN/ICU- SON EVER HERE, VISITING PT. PLAN OF CARE DISCUSSED W/ SAME. VERBALIZED UNDERSTANDING. ALL QUESTIONS ANSWERED APPROPRIATELY.
--- NOTE | 2017-02-01 03:23 | NUR ---
RN/ICU- POST INTUBATION ABGS BLOOD DRAW DONE BY RT BUENROSTRO. RESULTS IN, DOCUMENTED. PT. NOT IN ANY DISTRESS, SATURATING 97%. WILL CONTINUE TO MONITOR PT. CLOSELY.
[2017-02-01] MEDS ORDERED: ALBUTEROL HALF STRENGTH 1.25 MG/3 ML VIAL.NEB ONE (03:35)
[2017-02-01] MEDS ORDERED: IPRATROPIUM NEB FS 0.5 MG/2.5 ML AMPUL.NEB ONE (03:35)
--- NOTE | 2017-02-01 03:36 | NUR ---
ABG DONE. RN NOTIFIED WITH THE RESULT.
[2017-02-01] MEDS: ALBUTEROL HALF STRENGTH 1.25 MG/3 ML VIAL.NEB NEB SCH ×6 (03:39→23:16)
[2017-02-01] MEDS: IPRATROPIUM NEB FS 0.5 MG/2.5 ML AMPUL.NEB NEB SCH ×6 (03:39→23:16)
[2017-02-01 04:44] LABS: ABG BASE EXCESS 4.4 mmol/L; ABG OXYGEN SATURATION 87.6 % (92.0-98.5); ABG PCO2 35.5 mmHg (35.0-45.0); ABG PH 7.508 (7.350-7.450); ABG PO2 50.4 mmHg (75.0-100.0); AaDO2 627.1 mmHg; COHb 1.1 % (0.5-1.5); MetHb 0.8 % (0.0-1.5); O2Hb 85.9 % (94.0-97.0); PEEP,BG 5 cm H2O; SITE, ABG Right Brachial; VT, ABG 400 mL
--- NOTE | 2017-02-01 05:00 | NUR ---
RN/ICU- PT. VENT. PEAK AIRWAY PRESSURES UP TO THE 60'S, W/ VENT ALARMING, RR-24/MIN. DIPRIVAN DRIP INITIATED AT 5MCG/KG/MIN. PER PROTOCOL. WILL TITRATE ACCORDINGLY TO REACH ASA GOAL OF 3.
[2017-02-01] MEDS: PROPOFOL 100 ML IV PRN (05:23)
[2017-02-01] MEDS ORDERED: ENOXAPARIN SODIUM 40 MG/0.4 ML DISP.SYRIN SQ ONE (05:25)
[2017-02-01] MEDS ORDERED: ENOXAPARIN SODIUM 40 MG/0.4 ML DISP.SYRIN SQ SCH (06:00)
--- NOTE | 2017-02-01 06:22 | NUR ---
RN/ICU- REMAINS SEDATED ON DIPRIVAN DRIP AT 20MCG/KG/MIN PER PROTOCOL . ON THE VENT PER ETT, ON 100% FIO2, SATS.-100%. EKG SR. AFEBRILE. NO S/S OF DISTRESS OR PAIN USING THE FLACC PAIN SCALE ASSESSMENT.
[2017-02-01 07:03] LABS: APPEARANCE,URINE CLOUDY (CLEAR); BILIRUBIN,URINE NEGATIVE (NEGATIVE); BLOOD, URINE 3+ Ery/uL (NEGATIVE); COLOR,URINE BROWN (YELLOW); KETONES,URINE NEGATIVE (NEGATIVE); LEUKOCYTE ESTERASE ,URINE TRACE (NEGATIVE); NITRITE, URINE NEGATIVE (NEGATIVE); PH,URINE 8.5 (5.0-8.0); PROTEIN,URINE 3+ mg/dl (NEGATIVE); UGLUCOSE NEGATIVE (NEGATIVE); UROBILINOGEN,URINE 0.2 EU/dL (0.2)
[2017-02-01 07:18] LABS: BACTERIA,URINE 1+ /HPF (None Seen); RBC,URINE TOO NUMEROUS TO COUN /HPF (0-2)
[2017-02-01 07:19] LABS: MUCUS,URINE Moderate /LPF (None Seen); TRICHOMONAS,URINE Many /HPF (None Seen); YEAST,URINE Moderate /HPF (None Seen)
[2017-02-01 07:44] LABS: BASOPHILS % (AUTO) 0.3 % (0.0-2.0); EOSINOPHILS % (AUTO) 0.1 % (0.0-6.0); HEMATOCRIT 25 % (33-45); HEMOGLOBIN 8.2 g/dL (11.5-14.8); LYMPHOCYTES # (AUTO) 2.1 /CMM (0.8-4.8); LYMPHOCYTES % (AUTO) 13.2 % (20.0-44.0); MEAN CORPUSCULAR HEMOGLOBIN 29 PG (26.0-33.0); MEAN CORPUSCULAR HGB CONC 32 g/dl (31.0-36.0); MEAN CORPUSCULAR VOLUME 89 fL (82-100); MONOCYTES # (AUTO) 1.9 /CMM (0.1-1.30); MONOCYTES % (AUTO) 11.6 % (2.0-12.0); NEUTROPHILS # (AUTO) 11.9 /CMM (1.8-8.9); NEUTROPHILS % (AUTO) 74.8 % (43.0-81.0); PLATELET COUNT (AUTO) 179 /CMM (150-450); RED BLOOD CELL COUNT(AUTO) 2.86 MIL/uL (4.0-5.2)
[2017-02-01 07:57] LABS: CALCIUM, SERUM 8.5 mg/dL (8.5-10.1); CREATININE 1.7 mg/dL (0.6-1.3); POTASSIUM 3.5 mmol/L (3.5-5.1)
[2017-02-01] MEDS ORDERED: PIPERACILLIN /TAZOBACTAM 3.375 G in IV D5W 50 ML IV SCH (08:00)
[2017-02-01] MEDS ORDERED: IV 0.45% NS W/20 MEQ KCL 1L IV PRN ×2 (08:00)
[2017-02-01] MEDS ORDERED: NEPRO 1,000 ML BOTTLE NG PRN (08:00)
[2017-02-01 08:16] LABS: TROPONIN I 0.054 ng/mL (0.00-0.056)
[2017-02-01 08:21] LABS: THYROID STIMULATING HORMONE 60.643 uIU/mL (0.358-3.74)
[2017-02-01] MEDS: ACETAMINOPHEN 650 MG/20.3 ML UDC GT PRN (08:29)
--- NOTE | 2017-02-01 08:30 | NUR ---
ICU/RN - Notes Pt noted with fever 103.[address] Kiran made aware. Administered Tylenol 650mg via GT as ordered. Cooling measures in place.
[2017-02-01 09:01] LABS: ABG BASE EXCESS 1.3 mmol/L; ABG OXYGEN SATURATION 98.9 % (92.0-98.5); ABG PCO2 33.2 mmHg (35.0-45.0); ABG PH 7.488 (7.350-7.450); ABG PO2 323.7 mmHg (75.0-100.0); AaDO2 356.1 mmHg; COHb 0.7 % (0.5-1.5); MetHb 0.8 % (0.0-1.5); O2Hb 97.4 % (94.0-97.0); PEEP,BG 5 cm H2O; SITE, ABG Left Radial; VT, ABG 400 mL
[2017-02-01] MEDS ORDERED: FEE PK DOSING 1 MIN EA MC ONE (09:02)
[2017-02-01] MEDS ORDERED: VANCOMYCIN 500 MG in IV D5W 100 ML IV PRN (09:30)
[2017-02-01] MEDS: AMLODIPINE BESYLATE 5 MG TABLET GT SCH (09:30)
--- NOTE | 2017-02-01 09:30 | NUR ---
ICU/RN - Notes Pt noted with hypotension BP 77/44. Obtained order from Dr Burrows for 500mL NS bolus. Will carry out.
[2017-02-01] MEDS ORDERED: SECONDARY IV SET 1 EA INFUS.SET MC ONE ×3 (09:47→20:59)
[2017-02-01] MEDS ORDERED: IV NS 0.9% 500 ML IV ONE (10:00)
--- NOTE | 2017-02-01 10:05 | NUR ---
HECTOR Medina requested that a bioethics meeting be scheduled with the patient's family. Pt is a 76-year old , Bengali-speaking female. Per her H&P report by Dr. Kiran, patient was admitted to [facility] for respiratory distress. SW contacted the patient's son Enrrique Davies [[phone]] to schedule bioethics meeting. Patient's son confirmed that he would attend bioethics meeting scheduled for (02/02/2017) at 11am.
[2017-02-01] MEDS: PIPERACILLIN /TAZOBACTAM 2.25 G in IV D5W 50 ML IV SCH ×4 (10:17→23:50)
[2017-02-01] MEDS: IV NS 0.9% 250 ML IV PRN (10:28)
[2017-02-01] MEDS: CHOLECALCIFEROL 1,000 UNIT TABLET (VIT D3) GT SCH (10:31)
[2017-02-01] MEDS: PANTOPRAZOLE 40 MG/PACK PACK GT SCH (10:31)
[2017-02-01] MEDS: ASCORBIC ACID 500 MG TABLET GT SCH (10:31)
[2017-02-01] MEDS: VIT B CMPLX 3/FA/VIT C/BIOTIN 1 TAB TABLET GT SCH (10:31)
[2017-02-01] MEDS: ZINC SULFATE 220 MG CAPSULE GT SCH (10:31)
[2017-02-01] MEDS ORDERED: EPOETIN ALFA (10,000 UNIT) 10,000 UNIT/ML VIAL SQ ONE (11:00)
--- NOTE | 2017-02-01 11:00 | NUR ---
ICU/RN - Notes Sedation vacation provided for pt at 0930. Pt does not follow commands, only withdraws to painful stimuli. Pt does not appear uncomfortable at this time.
[2017-02-01] MEDS: RENAL NOVASOURCE 1,000 ML BOTTLE NG PRN (11:04)
[2017-02-01] MEDS: LEVOTHYROXINE SODIUM 125 MCG TABLET PO SCH (11:04)
[2017-02-01] MEDS ORDERED: DEXTROSE 50%-WATER 50 ML DISP.SYRIN IV PRN (11:30)
[2017-02-01] MEDS: BLOOD SUGAR DIAGNOSTIC 1 EACH STRIP IN SCH ×3 (11:46→23:50)
[2017-02-01] MEDS: INSULIN REGULAR, HUMAN 100 UNIT/ML 3 ML VIAL SQ PRN ×3 (11:48→23:52)
[2017-02-01] MEDS: ACETYLCYSTEINE 10% SOLN 400 MG/4 ML VIAL NEB SCH ×3 (11:52→23:16)
--- NOTE | 2017-02-01 12:40 | NUR ---
ICU/RN - Notes Pt remains to be hypotensive with current BP 82/46. Received orders from Dr Valdovinos to administer 2L NS bolus in 4 hours. Will carry out.
[2017-02-01] MEDS ORDERED: Z GUARD REMEDY 2 OZ OINT TP PRN (13:00)
[2017-02-01] MEDS: GENTAMICIN OPTH SOLN 0.3% 5 ML BOTTLE RIGHTEYE SCH ×2 (13:07→16:49)
[2017-02-01] MEDS: IV NS 0.9% 1,000 ML IV PRN ×2 (13:12→15:18)
[2017-02-01] MEDS: HYDROMORPHONE 1 MG/1 ML DISP.SYRIN IV PRN (15:18)
--- NOTE | 2017-02-01 15:18 | NUR ---
ICU/RN - Notes Pt appears to be in discomfort with eyes open and facial grimacing. Administered Dilaudid 1mg IVP as ordered for PRN pain, to ensure comfort as pt is intubated. Will reassess accordingly.
[2017-02-01] MEDS: METOPROLOL TARTRATE 50 MG TABLET GT SCH (16:19)
[2017-02-01] MEDS ORDERED: ALBUMIN 25% 25 GM in PREMIX 1 EA IV ONE (16:30)
[2017-02-01] MEDS: TIMOLOL 0.25% SOL OPHTH 10 ML BOTTLE EACHEYE SCH (16:49)
[2017-02-01] MEDS: ALBUMIN 25% 25 GM in PREMIX 1 EA IV PRN (17:45)
--- NOTE | 2017-02-01 18:00 | NUR ---
ICU/RN - Notes Pt currently undergoing hemodialysis with BP marginal. Albumin given by HD nurse for BP support.
--- NOTE | 2017-02-01 19:30 | NUR ---
Received patient obtunded with HD ongoing.No acute distress noted.SR per monitor. Intubated to leeanna and tolerating prescribed settings well tolerated.Patient with GT feeding in progress.No residual noted.FC cath in place no urine output noted at this time. With ongoing monitoring.
--- NOTE | 2017-02-01 20:00 | NUR ---
Patient HD finished 2Liters out.Tolerated procedure well.Specimen for Vanco trough obtained and given to lab.Notified pharmacist Ahsan for Vanco dose.
[2017-02-01] MEDS ORDERED: VANCOMYCIN 1 GM in IV D5W 250 ML IV PRN (21:00)
--- NOTE | 2017-02-01 22:00 | NUR ---
Patient son visiting updated of patient status and plan of care.All questions answered.
[2017-02-01] MEDS: LATANOPROST EYE DROP 0.005% 2.5 ML BOTTLE EACHEYE SCH (22:04)
[2017-02-02] VITALS (51 sets, daily range): BP systolic 78–121; BP diastolic 27–62
[2017-02-02] MEDS ORDERED: VANCOMYCIN 0.75 GM in IV D5W 250 ML IV SCH ×2
[2017-02-02] MEDS: IPRATROPIUM NEB FS 0.5 MG/2.5 ML AMPUL.NEB NEB SCH ×6 (03:25→23:36)
[2017-02-02] MEDS: ALBUTEROL HALF STRENGTH 1.25 MG/3 ML VIAL.NEB NEB SCH ×6 (03:25→23:36)
--- NOTE | 2017-02-02 05:00 | NUR ---
Patient for Bronchoscopy today.0500 Patient GT feeding put on old.
[2017-02-02 05:02] LABS: TROPONIN I 0.085 ng/mL (0.00-0.056)
[2017-02-02 05:05] LABS: ALBUMIN 2.7 g/dL (3.4-5.0); BILIRUBIN,TOTAL 0.8 mg/dL (0.2-1.0); CREATININE 1.3 mg/dL (0.6-1.3); MAGNESIUM 1.8 mg/dL (1.8-2.4); PHOSPHORUS 1.2 mg/dL (2.5-4.9); POTASSIUM 3.1 mmol/L (3.5-5.1); TOTAL PROTEIN, SERUM 7.1 g/dL (6.4-8.2)
[2017-02-02 05:19] LABS: BASOPHILS # (AUTO) 0.1 /CMM (0.0-0.2); BASOPHILS % (AUTO) 0.3 % (0.0-2.0); EOSINOPHILS # (AUTO) 0.1 /CMM (0.0-0.7); EOSINOPHILS % (AUTO) 0.4 % (0.0-6.0); LYMPHOCYTES % (AUTO) 11.2 % (20.0-44.0); MEAN CORPUSCULAR HEMOGLOBIN 29 PG (26.0-33.0); MEAN CORPUSCULAR HGB CONC 32 g/dl (31.0-36.0); MEAN CORPUSCULAR VOLUME 90 fL (82-100); MONOCYTES # (AUTO) 2.4 /CMM (0.1-1.30); NEUTROPHILS # (AUTO) 13.6 /CMM (1.8-8.9); NEUTROPHILS % (AUTO) 75.1 % (43.0-81.0); PLATELET COUNT (AUTO) 120 /CMM (150-450); RDW COEFFICIENT OF VARIATION 21.3 (11.5-15.0); RED BLOOD CELL COUNT(AUTO) 1.82 MIL/uL (4.0-5.2); WHITE BLOOD COUNT (AUTO) 18.1 K/uL (4.3-11.0)
[2017-02-02 05:21] LABS: HEMATOCRIT 16 % (33-45); HEMOGLOBIN 5.3 g/dL (11.5-14.8)
--- NOTE | 2017-02-02 05:33 | NUR ---
Patient AM labs resulted.H/H 5.12/01 called to with read back telephone orders and carried out. To transfuse 3 units PRBC.Type and screen ordered.Patient resting no active bleeding noted.
[2017-02-02 05:40] LABS: LYMPHOCYTES % (MANUAL) 13 % (16-48); MONOCYTES % (MANUAL) 13 % (0-11.0); NEUTROPHILS % (MANUAL) 74 (42-76)
[2017-02-02] MEDS: PIPERACILLIN /TAZOBACTAM 2.25 G in IV D5W 50 ML IV SCH ×3 (06:06→17:44)
[2017-02-02] MEDS: BLOOD SUGAR DIAGNOSTIC 1 EACH STRIP IN SCH ×3 (06:12→17:43)
[2017-02-02] MEDS: INSULIN REGULAR, HUMAN 100 UNIT/ML 3 ML VIAL SQ PRN ×2 (06:14→17:43)
--- NOTE | 2017-02-02 07:35 | NUR ---
ICU/RN - Initial Notes Received pt intubated to mechanical vent with settings as ordered. Pt obtunded, unable to follow commands, responds to painful stimuli only. Soft wrist restraint to left upper arm noted for safety. No s/s of discomfort or pain noted. SR 90 on tele monitor. GTube kept clamped, NPO for bronchoscopy today. [place] catheter intact, no output noted at this time. Peripheral IV's patent and intact. Pt suctioned with pink tinged secretions noted. Repositioned for comfort. Will continue to monitor pt closely.
[2017-02-02] MEDS: ACETYLCYSTEINE 10% SOLN 400 MG/4 ML VIAL NEB SCH ×2 (07:46→23:45)
[2017-02-02] MEDS ORDERED: POTASSIUM PHOSPHATE MM 15 MMOL in IV D5W 250 ML IV SCH (08:30)
[2017-02-02] MEDS: METOPROLOL TARTRATE 50 MG TABLET GT SCH ×2 (08:33→16:16)
[2017-02-02] MEDS: AMLODIPINE BESYLATE 5 MG TABLET GT SCH (08:33)
[2017-02-02] MEDS: GENTAMICIN OPTH SOLN 0.3% 5 ML BOTTLE RIGHTEYE SCH ×3 (08:34→17:41)
[2017-02-02] MEDS: prednisoLONE ACETATE 1% SUSP 5 ML BOTTLE EACHEYE SCH (08:34)
[2017-02-02] MEDS: TIMOLOL 0.25% SOL OPHTH 10 ML BOTTLE EACHEYE SCH ×2 (08:34→17:40)
[2017-02-02] MEDS: POTASSIUM CL. PREMIX PERIPHER. 50 ML IV SCH ×6 (08:56→15:36)
[2017-02-02] MEDS ORDERED: ENOXAPARIN SODIUM 30 MG/0.3 ML DISP.SYRIN SQ SCH (09:00)
[2017-02-02] MEDS ORDERED: IV SET PRIMARY PUMP SET 1 EA INFUS.SET MC ONE ×2 (09:14→23:31)
[2017-02-02] MEDS: POTASSIUM PHOSPHATE MM 7.5 MMOL in IV D5W 100 ML IV SCH ×2 (09:18→12:01)
--- NOTE | 2017-02-02 09:42 | NUR ---
WOUND CARE CONSULT WOUND RN SPOKE TO DR VASQUEZ THIS AM AND PER PMD AND DR BONDS, WILL HAVE BIOETHICS MEETING TODAY WITH FAMILY. PATIENT IS WELL KNOWN TO WOUND CARE, TREATMENT RECOMMENDATIONS DISCUSSED WITH PMD AND PMD IN AGREEMENT. PATIENT WITH CURRENT NELLIE AT 10, ON SIRI ISOFLEX LOW AIRLOSS SPECIALTY BED, RECOMMEND TURNING SCHED Q 2 HOUR AND BILATERAL HEEL FLOATING. RECOMMEND USE OF Z GUARD FOR SKIN/MOISTURE MANAGEMENT. ALL DISCUSSED WITH NURSING STAFF AT THE BEDSIDE. ALL SKIN MANAGEMENT AND PREVENTION MEASURES NOTED TO BE IN PLACE PER PLAN OF CARE.
[2017-02-02] MEDS ORDERED: HYDROGEL DRESSING 90 GM TUBE TP PRN (10:00)
--- NOTE | 2017-02-02 11:30 | NUR ---
ICU/RN - Notes Attended bioethics meeting with family and Dr Valdovinos. Received new orders from Dr Valdovinos. Bronchoscopy to take place tomorrow, after pt received PRBC transfusions. Will resume tube feeding and administer Gtube medications as ordered.
--- NOTE | 2017-02-02 11:35 | NUR ---
ICU/RN - Notes Received call from blood bank stating blood positive for antibody screening, will need to order from [place], delaying process of blood transfusion.
[2017-02-02] MEDS: IV NS 0.9% 250 ML IV PRN (11:49)
[2017-02-02] MEDS: HYDROGEL DRESSING 90 GM TUBE TP SCH (11:49)
[2017-02-02] MEDS: RENAL NOVASOURCE 1,000 ML BOTTLE NG PRN (11:49)
[2017-02-02] MEDS: VIT B CMPLX 3/FA/VIT C/BIOTIN 1 TAB TABLET GT SCH (11:50)
[2017-02-02] MEDS: ASCORBIC ACID 500 MG TABLET GT SCH (11:50)
[2017-02-02] MEDS: PANTOPRAZOLE 40 MG/PACK PACK GT SCH (11:50)
[2017-02-02] MEDS: ZINC SULFATE 220 MG CAPSULE GT SCH (11:50)
[2017-02-02] MEDS: LEVOTHYROXINE SODIUM 125 MCG TABLET PO SCH (11:50)
[2017-02-02] MEDS: CHOLECALCIFEROL 1,000 UNIT TABLET (VIT D3) GT SCH (11:50)
--- NOTE | 2017-02-02 12:08 | NUR ---
JAS attended bioethics meeting with patient's son [Enrrique Davies, ], Dr. Valdovinos, HECTOR Medina, and wound care nurse DARLENE Carrillo. Patient's son is Bengali speaking so SW translated for patient. Pt was explained medical options by Dr. Valdovinos. Pt was asked to select an option on how to proceed with medical care. Son requested blood products and diagnostic bronchoscopy. Patient's son will revaluate decision pending results. Addendum: 02/03/17 at 1014 by MITZY MARK Correction: DARLENE Carrillo did not attend the bioethics meeting. Instead, it was DARLENE Interiano that attended the meeting.
[2017-02-02] MEDS: ACETAMINOPHEN 650 MG/20.3 ML UDC GT PRN (12:14)
--- NOTE | 2017-02-02 12:15 | NUR ---
ICU/RN - Notes Pt noted with temperature 101.3 F. Administered Tylenol 650 mg via gTube as ordered. Cooling measures in place.
[2017-02-02] MEDS: HYDROMORPHONE 1 MG/1 ML DISP.SYRIN IV PRN ×2 (17:42→21:31)
[2017-02-02] MEDS: LACTOBACILLUS RHAMNOSUS GG 1 EACH CAP.SPRINK GT SCH (17:42)
--- NOTE | 2017-02-02 19:34 | NUR ---
Received patient obtunded responsive to painful stimuli only.Appears comfortable this time.Intubated Maintained on same prescribed vent settings and tolerating well.SPO2 100%.Suctioned small amount pink tinge secretions.Oral care done.SR.VS stable.GT feeding in progress no residual noted.Will turn patient Q 2 hrs with heels offloaded per skin protocol.Still waiting PRBC from Blood Bank.
[2017-02-02] MEDS: LATANOPROST EYE DROP 0.005% 2.5 ML BOTTLE EACHEYE SCH (21:28)
[2017-02-02] MEDS ORDERED: BLOOD IV SET 1 EA INFUS.SET MC ONE (21:37)
[2017-02-02] MEDS ORDERED: IV NS 0.9% 250 ML IV ONE (21:38)
--- NOTE | 2017-02-02 22:44 | NUR ---
Patient H/H 5.3 to transfuse 3 units PRBC.1st unit started.
[2017-02-02] MEDS ORDERED: NOREPINEPHRINE 4 MG/4 ML AMPUL IV ONE (23:30)
[2017-02-02] MEDS ORDERED: IV D5W 500 ML IV ONE (23:31)
--- NOTE | 2017-02-02 23:46 | NUR ---
Patient BP unstable and notified with read back telephone orders and carried out. Levophed Drip started at 2 mcg/min and will titrate accordingly.
[2017-02-03] VITALS (66 sets, daily range): BP systolic 84–157; BP diastolic 32–81
[2017-02-03] MEDS ORDERED: NOREPINEPHRINE 16 MG in IV D5W 500 ML IV PRN ×2
[2017-02-03] MEDS: PIPERACILLIN /TAZOBACTAM 2.25 G in IV D5W 50 ML IV SCH ×5 (00:01→23:49)
[2017-02-03] MEDS: BLOOD SUGAR DIAGNOSTIC 1 EACH STRIP IN SCH ×5 (00:09→23:55)
[2017-02-03] MEDS: INSULIN REGULAR, HUMAN 100 UNIT/ML 3 ML VIAL SQ PRN ×4 (00:10→23:55)
[2017-02-03] MEDS: NOREPINEPHRINE 16 MG in IV D5W 500 ML IV PRN (00:18)
--- NOTE | 2017-02-03 03:45 | NUR ---
Patient BP stable.Levophed drip titrated off.Will continue to monitor BP and will restart drip if needed.
[2017-02-03] MEDS: IPRATROPIUM NEB FS 0.5 MG/2.5 ML AMPUL.NEB NEB SCH ×6 (03:48→23:46)
[2017-02-03] MEDS: ALBUTEROL HALF STRENGTH 1.25 MG/3 ML VIAL.NEB NEB SCH ×6 (03:49→23:46)
--- NOTE | 2017-02-03 05:00 | NUR ---
Transfused 3 units PRBC without adverse reaction.VS stable.Will follow up AM labs.
--- NOTE | 2017-02-03 06:00 | NUR ---
Patient resting no apparent distress noted.VS stable.SR.AM care done.Tolerating GT feeding well. Turned and repositioned.
[2017-02-03 06:24] LABS: BASOPHILS # (AUTO) 0.1 /CMM (0.0-0.2); BASOPHILS % (AUTO) 1.3 % (0.0-2.0); EOSINOPHILS # (AUTO) 0.1 /CMM (0.0-0.7); EOSINOPHILS % (AUTO) 0.8 % (0.0-6.0); HEMATOCRIT 27 % (33-45); HEMOGLOBIN 8.8 g/dL (11.5-14.8); LYMPHOCYTES # (AUTO) 1.3 /CMM (0.8-4.8); LYMPHOCYTES % (AUTO) 11.3 % (20.0-44.0); MEAN CORPUSCULAR HEMOGLOBIN 30 PG (26.0-33.0); MEAN CORPUSCULAR HGB CONC 33 g/dl (31.0-36.0); MEAN CORPUSCULAR VOLUME 90 fL (82-100); MONOCYTES # (AUTO) 1.2 /CMM (0.1-1.30); MONOCYTES % (AUTO) 11.1 % (2.0-12.0); NEUTROPHILS # (AUTO) 8.4 /CMM (1.8-8.9); NEUTROPHILS % (AUTO) 75.5 % (43.0-81.0); PLATELET COUNT (AUTO) 109 /CMM (150-450); RDW COEFFICIENT OF VARIATION 16.4 (11.5-15.0); RED BLOOD CELL COUNT(AUTO) 2.96 MIL/uL (4.0-5.2); WHITE BLOOD COUNT (AUTO) 11.2 K/uL (4.3-11.0)
[2017-02-03] MEDS: ACETYLCYSTEINE 10% SOLN 400 MG/4 ML VIAL NEB SCH ×3 (07:16→23:46)
[2017-02-03] MEDS: TIMOLOL 0.25% SOL OPHTH 10 ML BOTTLE EACHEYE SCH ×2 (08:12→17:17)
[2017-02-03] MEDS: GENTAMICIN OPTH SOLN 0.3% 5 ML BOTTLE RIGHTEYE SCH ×3 (08:12→17:17)
[2017-02-03] MEDS: ASCORBIC ACID 500 MG TABLET GT SCH (08:13)
[2017-02-03] MEDS: prednisoLONE ACETATE 1% SUSP 5 ML BOTTLE EACHEYE SCH (08:13)
[2017-02-03] MEDS: VIT B CMPLX 3/FA/VIT C/BIOTIN 1 TAB TABLET GT SCH (08:13)
[2017-02-03] MEDS: LEVOTHYROXINE SODIUM 125 MCG TABLET PO SCH (08:13)
[2017-02-03] MEDS: PANTOPRAZOLE 40 MG/PACK PACK GT SCH (08:13)
[2017-02-03] MEDS: ZINC SULFATE 220 MG CAPSULE GT SCH (08:14)
[2017-02-03] MEDS: LACTOBACILLUS RHAMNOSUS GG 1 EACH CAP.SPRINK GT SCH ×2 (08:14→17:18)
[2017-02-03] MEDS: CHOLECALCIFEROL 1,000 UNIT TABLET (VIT D3) GT SCH (08:14)
[2017-02-03] MEDS: AMLODIPINE BESYLATE 5 MG TABLET GT SCH (08:15)
[2017-02-03] MEDS: METOPROLOL TARTRATE 50 MG TABLET GT SCH (08:16)
[2017-02-03] MEDS: HYDROGEL DRESSING 90 GM TUBE TP SCH (08:16)
[2017-02-03 08:45] LABS: ABG OXYGEN SATURATION 98.4 % (92.0-98.5); ABG PCO2 33.7 mmHg (35.0-45.0); ABG PH 7.461 (7.350-7.450); ABG PO2 148.4 mmHg (75.0-100.0); MetHb 0.7 % (0.0-1.5); O2Hb 96.7 % (94.0-97.0); PEEP,BG 5 cm H2O; SITE, ABG Right Brachial; VT, ABG 400 mL
[2017-02-03] MEDS ORDERED: VANCOMYCIN 500 MG in IV D5W 100 ML IV PRN (09:00)
[2017-02-03] MEDS ORDERED: IV SET PRIMARY PUMP SET 1 EA INFUS.SET MC ONE (11:41)
[2017-02-03] MEDS: PROPOFOL 100 ML IV PRN (11:50)
--- NOTE | 2017-02-03 12:15 | NUR ---
STATUS CONTROLLER Bronchoscopy done at bedside by Dr. Long. Propofol drip restarted as sedation per MD. Specimen sent to laboratory.
--- NOTE | 2017-02-03 13:00 | NUR ---
TOOTH GRINDER Patient remain stable post bronchoscopy. Diprivan drip stopped to be able to monitor patient cognitive/mental status.
[2017-02-03] MEDS: LATANOPROST EYE DROP 0.005% 2.5 ML BOTTLE EACHEYE SCH (22:31)
[2017-02-04] VITALS (39 sets, daily range): BP systolic 97–167; BP diastolic 35–121
[2017-02-04] MEDS: ALBUTEROL HALF STRENGTH 1.25 MG/3 ML VIAL.NEB NEB SCH ×6 (03:15→23:27)
[2017-02-04] MEDS: IPRATROPIUM NEB FS 0.5 MG/2.5 ML AMPUL.NEB NEB SCH ×6 (03:16→23:27)
--- NOTE | 2017-02-04 04:25 | NUR ---
rn:icu: pt has left upper arm device over shunt, no bleeding noted. circulation remains intact. pt feeding tube started beeping. attempted to irrigate but feeding tube clogged. pt peg actually avalos cath tube. tf placed on hold. will endorse to oncoming shift.
[2017-02-04 04:54] LABS: BASOPHILS % (AUTO) 0.4 % (0.0-2.0); EOSINOPHILS # (AUTO) 0.1 /CMM (0.0-0.7); HEMATOCRIT 27 % (33-45); HEMOGLOBIN 8.9 g/dL (11.5-14.8); LYMPHOCYTES # (AUTO) 1.8 /CMM (0.8-4.8); LYMPHOCYTES % (AUTO) 20.2 % (20.0-44.0); MEAN CORPUSCULAR HEMOGLOBIN 30 PG (26.0-33.0); MEAN CORPUSCULAR HGB CONC 33 g/dl (31.0-36.0); MEAN CORPUSCULAR VOLUME 91 fL (82-100); MONOCYTES # (AUTO) 1.2 /CMM (0.1-1.30); MONOCYTES % (AUTO) 13.6 % (2.0-12.0); NEUTROPHILS # (AUTO) 5.8 /CMM (1.8-8.9); NEUTROPHILS % (AUTO) 64.8 % (43.0-81.0); PLATELET COUNT (AUTO) 113 /CMM (150-450); RDW COEFFICIENT OF VARIATION 17.4 (11.5-15.0); RED BLOOD CELL COUNT(AUTO) 2.99 MIL/uL (4.0-5.2); WHITE BLOOD COUNT (AUTO) 8.9 K/uL (4.3-11.0)
[2017-02-04 05:00] LABS: CALCIUM, SERUM 8.3 mg/dL (8.5-10.1); CREATININE 1.7 mg/dL (0.6-1.3); POTASSIUM 4.5 mmol/L (3.5-5.1)
[2017-02-04] MEDS: BLOOD SUGAR DIAGNOSTIC 1 EACH STRIP IN SCH ×3 (05:37→17:10)
[2017-02-04] MEDS: PIPERACILLIN /TAZOBACTAM 2.25 G in IV D5W 50 ML IV SCH ×3 (05:37→17:12)
[2017-02-04] MEDS ORDERED: VANCOMYCIN 500 MG in IV D5W 100 ML IV PRN (07:00)
--- NOTE | 2017-02-04 07:15 | NUR ---
rn:icu: dr narvaez at the bedside. endorsed to oncoming shift to have dr moe adjust patients Synthroid medication per dr narvaez.
--- NOTE | 2017-02-04 07:25 | NUR ---
RN INITIAL NOTES PT IN BED, OBTUNDED, OPENS EYES, CANNOT TRACE MY FINGER. ON TELE MONITOR WITH SR 90'S. PT HAS ETT 7.5/ 23, AC 12, TV 400, FIO2 40%, PEEP 5, TOLERATING WELL; WEANING TO BE DONE TODAY. PT HAS VANESSA CATH GT (BROUGHT IN BY FACILITY WITH IT), CLOGGED SINCE 0400 PER NIGHT NURSE GINA; TUBE FEEDING STOPPED, WILL BE UNABLE TO GIVE ALL PO MEDS; WILL PUT IN AND CONTACT GI PHYSICIAN. PT IS ANURIC. IV ON LYNNE AV SHUNT, FLIP MIDLINE 18G, LEFT EJ 22G, AND RIGHT WRIST 22G RUNNING TKO, LINES CDI, NO SIGNS OF INFECTION/INFILTRATION NOTED. PT HAS SACRAL STAGE 3, ALL WOUND ORDERS CARRIED OUT. CALL LIGHT WITHIN EASY REACH, SAFETY MEASURES MAINTAINED, WILL CONTINUE TO MONITOR AND FOLLOW MD ORDERS. PRIMARY FOR TODAY IS DR. VASQUEZ.
[2017-02-04] MEDS: LEVOTHYROXINE SODIUM 125 MCG TABLET PO SCH (07:30)
[2017-02-04] MEDS: ACETYLCYSTEINE 10% SOLN 400 MG/4 ML VIAL NEB SCH ×3 (07:53→23:27)
--- NOTE | 2017-02-04 07:59 | NUR ---
RN NOTES 0730 AND 0900 PO MEDS ARE NOT GIVEN TO DO PTS GT (WHICH IS A VANESSA CATH THAT WAS INSERTED IN THE NURSING FACILITY) IS CLOGGED. NIGHT NURSE AND I TIRED MULTIPLE TIMES TO UNCLOG. CHARGE NURSE AGUSTIN WILLOUGHBY. WILL PUT IN GI PHYSICIAN CONSULT. PT IN STABLE CONDITION.
[2017-02-04] MEDS: PANTOPRAZOLE 40 MG/PACK PACK GT SCH (08:01)
[2017-02-04] MEDS: VIT B CMPLX 3/FA/VIT C/BIOTIN 1 TAB TABLET GT SCH (08:01)
[2017-02-04] MEDS: LACTOBACILLUS RHAMNOSUS GG 1 EACH CAP.SPRINK GT SCH ×2 (08:01→16:11)
[2017-02-04] MEDS: ASCORBIC ACID 500 MG TABLET GT SCH (08:02)
[2017-02-04] MEDS: ZINC SULFATE 220 MG CAPSULE GT SCH (08:02)
[2017-02-04] MEDS: CHOLECALCIFEROL 1,000 UNIT TABLET (VIT D3) GT SCH (08:02)
[2017-02-04] MEDS: prednisoLONE ACETATE 1% SUSP 5 ML BOTTLE EACHEYE SCH (09:00)
[2017-02-04] MEDS: TIMOLOL 0.25% SOL OPHTH 10 ML BOTTLE EACHEYE SCH ×2 (09:00→16:12)
[2017-02-04] MEDS: GENTAMICIN OPTH SOLN 0.3% 5 ML BOTTLE RIGHTEYE SCH ×3 (09:00→16:12)
--- NOTE | 2017-02-04 09:00 | NUR ---
RN NOTES PT AND PTS FAMILY MEMBERS SEEN BY DR. VASQUEZ, ORDERS IN COMPUTERS, PT IN STABLE CONDITION. PT HAS BLOOD WHEN SUCTIONS POSSIBLE D/T INTUBATION/IRRITATION. PT SEEN BY RT.
[2017-02-04] MEDS: HYDROGEL DRESSING 90 GM TUBE TP SCH (09:02)
[2017-02-04] MEDS: HEPARIN SODIUM, PORCINE 5000 UNITS/1 ML VIAL SQ SCH ×2 (09:27→20:02)
[2017-02-04] MEDS: HYDROMORPHONE 1 MG/1 ML DISP.SYRIN IV PRN ×2 (09:36→22:53)
--- NOTE | 2017-02-04 09:45 | NUR ---
RN NOTES DR. MATUTE HERE FOR GI CONSULT (HE WAS THE REGULATORY AFFAIRS ASSISTANT DOCTOR FOR GI; NOT KELLY). MD TO SEE PT. FAMILY MEMBERS LEFT.
--- NOTE | 2017-02-04 10:00 | NUR ---
RN NOTES GOT CONSENT FOR EGD WITH GT REPLACEMENT FROM PTS SON JEFRY HERNANDEZ VIA CELL PHONE
--- NOTE | 2017-02-04 10:39 | NUR ---
RN NOTES PT IS GOING THROUGH WEANING TRIAL, WILL CONTINUE TO MONITOR. PT SEEN BY DR. TERAN.
--- NOTE | 2017-02-04 10:47 | NUR ---
RN NOTES PER DR. TERAN, PT IS NOT TOLERATING WEANING WELL, HAS AGONAL BREATHING, PUT HER BACK ON TO PREVIOUS SETTINGS.
--- NOTE | 2017-02-04 11:48 | NUR ---
pt failed weaning trial with dr. Gould at bedside. placed back in ac mode per dr. gould
--- NOTE | 2017-02-04 17:18 | NUR ---
RN NOTES PTS MECH VENT START TO GO OFF, EMORY RT, KEPT SUCTIONING UNTIL A LARGE MUCUS PLUG CAME OUT, DURING THE SUCTIONING PROCESS, PTS HR WENT DOWN TO THE 40'S. CODE BLUE WAS CALLED BUT THEN IMMEDIATELY AFTER CANCELED. PT IN STABLE CONDITION, VSS. TOLERATING MECH VENT MUCH BETTER.
--- NOTE | 2017-02-04 19:16 | NUR ---
RN NOTES DR. TERAN AND DR. VASQUEZ AWARE OF PTS STAT CXR RESULTS. ORDERS GIVEN TO NIGHT NURSE. PT OVERALL IN STABLE CONDITION, VSS.
--- NOTE | 2017-02-04 19:17 | NUR ---
RN NOTES PT IN STABLE CONDITION, ALL MD/WOUND ORDERS CARRIED OUT, IV'S CDI, NO SIGNS OF INFECTION/INFILTRATION, TOLERATING MECH VENT WELL, BILATERAL SOFT WRIST RESTRAINTS INTACT WITH TWO FINGER SPACE. CALL LIGHT WITHIN EASY REACH, SAFETY MEASURES MAINTAINED, REPORT GIVEN TO NIGHT NURSE FOR AGUSTIN.
--- NOTE | 2017-02-04 19:20 | NUR ---
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 SPOKE WITH DR TERAN ASSISTANT CASE MANAGER MADE AWARE ABOUT CHEST XRAY, WANTS TO INSERT CHEST TUBE ON RIGHT SIDE, AND DO CHEST X-RAY Q6 H X2 IF LEFT LUNG PNEUMOTHORAX INCREASE THEN INSERT CHEST TUBE ON LEFT SIDE WELL. CHARGE NURSE/ED AWARE, WILL CALL ER MD TO COME IN ICU INSERT CHEST TUBE. PT ALREADY INTUBATED, ON VENT, S/P BRONCHOSCOPY YESTERDAY.
[2017-02-04] MEDS ORDERED: SECONDARY IV SET 1 EA INFUS.SET MC ONE (19:57)
[2017-02-04] MEDS: LINEZOLID RTU BAG 600 MG in PREMIX 1 EA IV SCH (20:01)
--- NOTE | 2017-02-04 20:09 | NUR ---
HUMAN RESOURCES HR GENERALIST; CHEST TUBE PLACEMENT CONSENT: CALLED PT'S SON EVER, MADE AWARE ABNORMAL CHEST X-RAY, PNEUMOTHORAX, ADVERTISING TEACHER DIVISION COMMANDER USED TO SPEAK CHINESE ON PHONE, PT'S SONE EVER SAID" HE WILL CALL AFTER HE TALK WITH OTHER FAMILY MEMBERS". AWAITING SON TO CALL BACK TO DECIDE CHEST TUBE PLACEMENT.
--- NOTE | 2017-02-04 20:42 | NUR ---
MANUFACTURER AGENT; PT'S SON EVER CALL BACK, WANTS TO TALK TO MD BEFORE GIVING CONSENT FOR CHEST TUBE PLACEMENT. DR TERAN MADE AWARE THAT PT'S SON WANNA TALK TO MD , DR TERAN IS OFFLINE NOW. MADE AWARE PRIMARY DR VASQUEZ GAVE HIM SON'S PHONE NUMBER, DR VASQUEZ WILL CALL SON REGARDING CHEST TUBE PLACEMENT. BEFORE THIS CONVERSATION SON WASN'T AGREE TO INSERT CHEST TUBE THEN THE SAME TIME SPOKE WITH DR TERAN MADE AWARE PT'S SON WANTS TO WAIT UNTIL MORNING OR TALK TO MD FIRST, DR TERAN CONCERN ABOUT PT'S CONDITION COULD BE WORSE ANYTIME IF NO CHEST TUBE PLACED THIS TIME. ALL ABOVE CONVERSATION DISCUSSED WITH PT'S SON THROUGH OTR TRUCK DRIVER, THEN SON DECIDED TO TALK TO MD RIGHT NOW. WILL WAIT FOR THE SON TO CALL BACK AFTER TALK TO DR VASQUEZ....
[2017-02-04] MEDS: LATANOPROST EYE DROP 0.005% 2.5 ML BOTTLE EACHEYE SCH (21:10)
[2017-02-04] MEDS: ACETAMINOPHEN 650 MG/20.3 ML UDC GT PRN (21:30)
--- NOTE | 2017-02-04 23:42 | NUR ---
RECTIFIER OPERATOR: ER MD WILL COME TO INSERT CHEST TUBE, SPOKE WITH ER MD DR MOYA SAID SO BUSY THIS TIME WILL COME LATER. DR VASQUEZ AWARE. PT'S SON EVER AT BEDSIDE CONSENT SIGNED.
[2017-02-05] VITALS (73 sets, daily range): BP systolic 75–160; BP diastolic 26–105
[2017-02-05] MEDS: PIPERACILLIN /TAZOBACTAM 2.25 G in IV D5W 50 ML IV SCH ×4 (00:19→17:24)
[2017-02-05] MEDS: BLOOD SUGAR DIAGNOSTIC 1 EACH STRIP IN SCH ×4 (00:19→17:25)
--- NOTE | 2017-02-05 02:32 | NUR ---
MARKETING TRAINEE: STILL AWAITING ER MD TO INSERT CHEST TUBE, ALREADY CALLED FEW TIMES IN ER , DR STILL BUSY IN ER. PT'S FAMILY AT BEDSIDE WAITING FOR
--- NOTE | 2017-02-05 02:43 | NUR ---
WEEDER; ER MD DR MOYA AT BEDSIDE GOING TO INSERT CHEST TUBE, FAMILY AT BEDSIDE, PT'S SON EVER CHANGED THE CODE STATUS TO DNR, DURING CONVERSATION OF CHANGING THE CODE STATUS, CHARGE NURSE/ED, DR MOYA FROM ER AND MYSELF WERE PRESENT, WITNESSED WITH DR LISA ER PHYSICIAN AND CHARGE NURSE/ED, PRIMARY DR VASQUEZ NOTIFIED.
[2017-02-05] MEDS ORDERED: FENTANYL PF 100MCG/2ML AMPUL ONE (02:47)
[2017-02-05] MEDS ORDERED: FENTANYL PF 100MCG/2ML AMPUL IV ONE (03:00)
--- NOTE | 2017-02-05 03:18 | NUR ---
COLLATERAL SPECIALIST; CHEST TUBE INSERTED IN RIGHT LUNG BY ER DR MOYA, CHEST TUBE SECURED PROPERLY, COVERED WITH PRESSURE TAPE., STAT CHEST X-RAY ORDERED, WILL NOTIFY MD CHEST X-RAY REPORT .
--- NOTE | 2017-02-05 03:21 | NUR ---
RAILROAD EMERGENCY SERVICES MANAGER: V/S STABLE THROUGH OUT THE PROCEDURE. FOR DISCOMFORT, FENTANYL 50 MCG IV X 1 GIVEN BY CHARGE NURSE/ED, VIAL WAS 100 MCG/2ML, REST OF 50 MCG WASTED , WITNESSED BY MYSELF.
[2017-02-05] MEDS: IPRATROPIUM NEB FS 0.5 MG/2.5 ML AMPUL.NEB NEB SCH ×6 (03:26→23:33)
[2017-02-05] MEDS: ALBUTEROL HALF STRENGTH 1.25 MG/3 ML VIAL.NEB NEB SCH ×6 (03:26→23:30)
[2017-02-05 04:51] LABS: BASOPHILS % (AUTO) 0.1 % (0.0-2.0); EOSINOPHILS # (AUTO) 0.1 /CMM (0.0-0.7); EOSINOPHILS % (AUTO) 0.8 % (0.0-6.0); MEAN CORPUSCULAR HEMOGLOBIN 30 PG (26.0-33.0); MEAN CORPUSCULAR HGB CONC 32 g/dl (31.0-36.0); MEAN CORPUSCULAR VOLUME 92 fL (82-100); MONOCYTES # (AUTO) 2.1 /CMM (0.1-1.30); MONOCYTES % (AUTO) 12.6 % (2.0-12.0); NEUTROPHILS # (AUTO) 12.3 /CMM (1.8-8.9); NEUTROPHILS % (AUTO) 74.5 % (43.0-81.0); PLATELET COUNT (AUTO) 139 /CMM (150-450); RDW COEFFICIENT OF VARIATION 17.7 (11.5-15.0); RED BLOOD CELL COUNT(AUTO) 2.03 MIL/uL (4.0-5.2); WHITE BLOOD COUNT (AUTO) 16.5 K/uL (4.3-11.0)
[2017-02-05 04:58] LABS: HEMATOCRIT 19 % (33-45)
[2017-02-05 04:59] LABS: CALCIUM, SERUM 8.1 mg/dL (8.5-10.1); CREATININE 2.5 mg/dL (0.6-1.3); POTASSIUM 5.7 mmol/L (3.5-5.1)
[2017-02-05] MEDS: IV NS 0.9% 250 ML IV PRN (05:04)
--- NOTE | 2017-02-05 05:20 | NUR ---
OFFSET PRESS ASSISTANT: MERI H/H 6.0, NOTIFIED DR VASQUEZ, ORDERS 2 UNITS OF PRBC.
[2017-02-05 06:24] LABS: BAND % (MANUAL) 2 % (0.0-5.0); LYMPHOCYTES % (MANUAL) 18 % (16-48); MONOCYTES % (MANUAL) 12 % (0-11.0); NEUTROPHILS % (MANUAL) 68 (42-76)
[2017-02-05] MEDS: LEVOTHYROXINE SODIUM 125 MCG TABLET PO SCH (07:30)
--- NOTE | 2017-02-05 07:30 | NUR ---
RENTAL MANAGEMENT TRAINEE RECEIVED PATIENT FROM THE PREVIOUS SHIFT. PATIENT IS IN BED. RESTING COMFORTABLY. NO ACUTE DISTRESS NOTED. EVEN AND NON LABORED BREATHING PATTERN. AFEBRILE. SINUS RHYTHM ON MONITOR. WILL CONTINUE TO MONITOR AND PROVIDE CARE.
[2017-02-05] MEDS ORDERED: PANTOPRAZOLE 40 MG VIAL IV SCH (08:00)
[2017-02-05] MEDS: ACETYLCYSTEINE 10% SOLN 400 MG/4 ML VIAL NEB SCH ×3 (08:06→23:34)
[2017-02-05] MEDS: LACTOBACILLUS RHAMNOSUS GG 1 EACH CAP.SPRINK GT SCH ×2 (08:11→17:00)
[2017-02-05] MEDS: ZINC SULFATE 220 MG CAPSULE GT SCH (08:11)
[2017-02-05] MEDS: CHOLECALCIFEROL 1,000 UNIT TABLET (VIT D3) GT SCH (08:11)
[2017-02-05] MEDS: ASCORBIC ACID 500 MG TABLET GT SCH (08:11)
[2017-02-05] MEDS: VIT B CMPLX 3/FA/VIT C/BIOTIN 1 TAB TABLET GT SCH (08:11)
[2017-02-05] MEDS ORDERED: IV SET PRIMARY PUMP SET 1 EA INFUS.SET MC ONE ×2 (08:20→19:28)
[2017-02-05] MEDS ORDERED: IV NS 0.9% 250 ML IV ONE (08:21)
[2017-02-05] MEDS ORDERED: [UNRECOGNIZED DRUG - SUPPLY] MC ONE (08:21)
[2017-02-05] MEDS: NOREPINEPHRINE 16 MG in IV D5W 500 ML IV PRN (08:33)
[2017-02-05] MEDS: HYDROGEL DRESSING 90 GM TUBE TP SCH (08:34)
[2017-02-05] MEDS: HEPARIN SODIUM, PORCINE 5000 UNITS/1 ML VIAL SQ SCH (08:37)
[2017-02-05] MEDS: prednisoLONE ACETATE 1% SUSP 5 ML BOTTLE EACHEYE SCH (08:37)
[2017-02-05] MEDS: GENTAMICIN OPTH SOLN 0.3% 5 ML BOTTLE RIGHTEYE SCH (08:38)
[2017-02-05] MEDS: TIMOLOL 0.25% SOL OPHTH 10 ML BOTTLE EACHEYE SCH ×2 (08:38→17:26)
[2017-02-05] MEDS: LINEZOLID RTU BAG 600 MG in PREMIX 1 EA IV SCH ×2 (08:39→20:12)
--- NOTE | 2017-02-05 09:18 | NUR ---
PROPERTY MANAGEMENT ACCOUNTANT PATIENT NOTED TO HAVE SVTS. PATIENT IS NOW ON 10 MCG LEVO DUE TO HYPOTENSION. RN CALLED CHUTE MAN AND INFORMED ABOUT THE SVTS. NO NEW ORDERS FROM MD AT THIS TIME. MD RECOMMENDED TO CHECK ABG AT THIS TIME. RN INFORMED THE SON ABOUT ABG ORDER. SON REFUSED THE ABG DRAW SINCE SON BELIEVES THAT ATTEMPTING THE ABG WAS THE REASON FOR SVTS. RN PROVIDED RISKS AND BENEFITS TO THE PATIENT'S SON. RN PROVIDED EDUCATION TO THE SON. SON VERBALIZED UNDERSTANDING. WILL CONTINUE TO MONITOR AND PROVIDE CARE.
--- NOTE | 2017-02-05 10:03 | NUR ---
RT FAMILY REFUSED ABG DRAW. RN AWARE
--- NOTE | 2017-02-05 10:15 | NUR ---
NURSE CLINICIAN SON REFUSES NGT PLACEMENT AT THIS TIME.
[2017-02-05] MEDS ORDERED: IV NS 0.9% 500 ML IV STA (12:10)
--- NOTE | 2017-02-05 12:12 | NUR ---
MANAGER E LEARNING PATIENT WAS SEEN AND EXAMINED BY THE BONE GLUE MAKER, OFFENSIVE COORDINATOR AND PRIMARY MD AT BEDSIDE. ALL MDS AGREED THAT NO INTERVENTIONS NECESSARY AT THIS TIME FOR SVTS. ALL MDS SPOKE TO SON AT BEDSIDE AND EXPLAINED ABOUT THE POOR PROGNOSIS OF THE PATIENT. UNABLE TO TURN AND REPOSITION AT THIS TIME DUE TO HEMODYNAMIC INSTABILITY. DNR STATUS CONFIRMED BY PRIMARY MD WITH THE SON. RN WITNESSED THE EVENT. PATIENT NOTED TO BE HYPOTENSIVE AT THIS TIME. RN INFORMED THE BONE GLUE MAKER. RECEIVED ORDERS FOR IV FLUIDS 500CC OVER 30 MIN AND CUT OFF PEEP FORM THE VENT. SON MADE AWARE.
[2017-02-05] MEDS ORDERED: SECONDARY IV SET 1 EA INFUS.SET MC ONE (12:13)
[2017-02-05] MEDS: INSULIN REGULAR, HUMAN 100 UNIT/ML 3 ML VIAL SQ PRN (12:23)
--- NOTE | 2017-02-05 12:30 | NUR ---
EMERGENCY VEHICLE DISPATCHER LEVOPHED TURNED OFF PER ENGINEER CONDUCTOR RECOMMENDATION SINCE IT MAY BE CONTRIBUTING TO SVTS.
--- NOTE | 2017-02-05 12:55 | NUR ---
RT PER DR JEFFRY IBANEZ D/C'D AND FIO2 INCREASED TO 80% Addendum: 02/05/17 at 1256 by GIOVANI WHITE RT Amended: Links added.
[2017-02-05] MEDS ORDERED: PHENYLEPHRINE 40 MG in IV D5W 250 ML IV PRN (13:00)
[2017-02-05] MEDS: HYDROMORPHONE 1 MG/1 ML DISP.SYRIN IV PRN (14:17)
--- NOTE | 2017-02-05 15:40 | NUR ---
GOODYEAR WELTER PATIENT NOTED TO BE HYPOTENSIVE AT TIMES. MD ORDER IS TO MAINTAIN MAP ABOVE 60. RN SPOKE TO REMOTE SENSING TECHNICIAN AND INFORMED ABOUT PATIENT'S EPISODES OF TACHYCARDIA AND SVTS AT TIMES. PER MD NO INTERVENTIONS NECESSARY AT THIS TIME. FAMILY AT BEDSIDE. RN PROVIDED FAMILY EDUCATION REGARDING PATIENT'S POOR PROGNOSIS. WILL CONTINUE TO MONITOR AND PROVIDE CARE.
[2017-02-05] MEDS: PANTOPRAZOLE 40 MG VIAL IV SCH (17:27)
--- NOTE | 2017-02-05 19:30 | NUR ---
RN INITIAL NOTES RECEIVED PATIENT ASLEEP ON BED, AROUSABLE TO PAIN ONLY. CURRENTLY ON VENT AC 12, TV 400, 40% FIO2, PEEP 0, ETT 7.5/23@LIP. CURRENTLY SVT WITH HR 150'S ON MONITOR. SBP APPEARS < 90, WILL START PRN OLLIE DRIP. PT ANURIC. RIGHT UPPER ARM MIDLINE , RIGHT WRIST 22G, AND LEFT EJ 22G FLUSHED AND PATENT, NO S/S OF INFILTRATION/INFECTION, DRESSINGS CDI. BED LOW AND LOCKED, SIDERAILS UP. WILL MONITOR
--- NOTE | 2017-02-05 21:10 | NUR ---
RN NOTES CALLED BLOOD BANK AND TALKED TO BOLIVAR TO GET AN UPDATE IN REGARDS TO THE STATUS OF PATIENT'S ORDERED 2UNITS PRBC. PER BOLIVAR, BLOOD IS FROM [facility] AND WILL TAKE AROUND 1-2DAYS TO ARRIVE.
[2017-02-05] MEDS: LATANOPROST EYE DROP 0.005% 2.5 ML BOTTLE EACHEYE SCH (21:23)
[2017-02-06] VITALS (61 sets, daily range): BP systolic 82–155; BP diastolic 20–78
[2017-02-06] MEDS: PIPERACILLIN /TAZOBACTAM 2.25 G in IV D5W 50 ML IV SCH ×5 (00:06→23:29)
[2017-02-06] MEDS: BLOOD SUGAR DIAGNOSTIC 1 EACH STRIP IN SCH ×5 (00:06→23:54)
[2017-02-06] MEDS: ALBUTEROL HALF STRENGTH 1.25 MG/3 ML VIAL.NEB NEB SCH ×6 (03:05→23:39)
[2017-02-06] MEDS: IPRATROPIUM NEB FS 0.5 MG/2.5 ML AMPUL.NEB NEB SCH ×6 (03:17→23:39)
[2017-02-06] MEDS: HYDROMORPHONE 1 MG/1 ML DISP.SYRIN IV PRN ×3 (05:12→16:01)
[2017-02-06 05:13] LABS: CALCIUM, SERUM 7.6 mg/dL (8.5-10.1); CREATININE 2.9 mg/dL (0.6-1.3); POTASSIUM 5.3 mmol/L (3.5-5.1)
[2017-02-06 05:23] LABS: BASOPHILS % (AUTO) 0.2 % (0.0-2.0); EOSINOPHILS # (AUTO) 0.1 /CMM (0.0-0.7); EOSINOPHILS % (AUTO) 0.5 % (0.0-6.0); LYMPHOCYTES # (AUTO) 1.4 /CMM (0.8-4.8); LYMPHOCYTES % (AUTO) 11.2 % (20.0-44.0); MEAN CORPUSCULAR HEMOGLOBIN 30 PG (26.0-33.0); MEAN CORPUSCULAR HGB CONC 33 g/dl (31.0-36.0); MEAN CORPUSCULAR VOLUME 92 fL (82-100); MONOCYTES # (AUTO) 1.8 /CMM (0.1-1.30); MONOCYTES % (AUTO) 14.1 % (2.0-12.0); NEUTROPHILS # (AUTO) 9.5 /CMM (1.8-8.9); PLATELET COUNT (AUTO) 96 /CMM (150-450); RDW COEFFICIENT OF VARIATION 17.9 (11.5-15.0); WHITE BLOOD COUNT (AUTO) 12.8 K/uL (4.3-11.0)
[2017-02-06 05:26] LABS: HEMATOCRIT 13 % (33-45); HEMOGLOBIN 4.2 g/dL (11.5-14.8)
[2017-02-06 06:28] LABS: BAND % (MANUAL) 2 % (0.0-5.0); LYMPHOCYTES % (MANUAL) 13 % (16-48); NEUTROPHILS % (MANUAL) 74 (42-76)
[2017-02-06 06:29] LABS: MONOCYTES % (MANUAL) 11 % (0-11.0)
--- NOTE | 2017-02-06 06:30 | NUR ---
RN CLOSING NOTES PT REMAINS STABLE OF THE MOMENT. ALL DUE MEDS GIVEN. AM CARE PROVIDED. WILL ENDORSE CONTINUITY OF CARE TO AM RN
[2017-02-06] MEDS: ACETYLCYSTEINE 10% SOLN 400 MG/4 ML VIAL NEB SCH ×3 (07:09→23:39)
[2017-02-06 07:22] LABS: ABG BASE EXCESS -0.3 mmol/L; ABG OXYGEN SATURATION 91.1 % (92.0-98.5); ABG PCO2 35.8 mmHg (35.0-45.0); ABG PH 7.441 (7.350-7.450); ABG PO2 64.8 mmHg (75.0-100.0); AaDO2 179.2 mmHg; COHb 2.1 % (0.5-1.5); MetHb 1.6 % (0.0-1.5); O2Hb 87.7 % (94.0-97.0); PEEP,BG 5 cm H2O; SITE, ABG Right Brachial; VENT MODE, BG A/C; VT, ABG 400 mL
[2017-02-06] MEDS: LEVOTHYROXINE SODIUM 125 MCG TABLET PO SCH (07:30)
--- NOTE | 2017-02-06 07:30 | NUR ---
ICU/RN: PT RECEIVED, INTUBATED, BREATHING EVEN AND UNLABORED ON CURRENT VENT SETTINGS. NSR ON MONITOR. PT OPENS EYES TO PAIN, UNABLE TO FOLLOW COMMANDS, GAG AND COUGH REFLEX PRESENT, AIRWAY CLEARED OF SECRETIONS. TKO INFUSING WELL THROUGH FLIP MIDLINE. BILAT HEELS OFFLOADED. ALARM SOUNDS AUDIBLE. WILL CONT TO MONITOR PT.
--- NOTE | 2017-02-06 07:50 | NUR ---
ICU/RN: DR BONDS AT BEDSIDE. PT CURRENTLY IN SVT 180'S, INFORMED OF PT'S EPISODES OF HYPOTENSION OVERNIGHT REQUIRING NEOSYNEPHRINE. NO NEW ORDERS.
[2017-02-06 08:05] LABS: ABG BASE EXCESS -0.7 mmol/L; ABG OXYGEN SATURATION 97.6 % (92.0-98.5); ABG PH 7.397 (7.350-7.450); ABG PO2 145.7 mmHg (75.0-100.0); AaDO2 165.8 mmHg; COHb 1.7 % (0.5-1.5); MetHb 1.9 % (0.0-1.5); O2Hb 94.1 % (94.0-97.0); PEEP,BG 0 cm H2O; SITE, ABG Right Radial
[2017-02-06] MEDS: TIMOLOL 0.25% SOL OPHTH 10 ML BOTTLE EACHEYE SCH ×2 (08:20→16:10)
[2017-02-06] MEDS: LINEZOLID RTU BAG 600 MG in PREMIX 1 EA IV SCH ×2 (08:23→21:25)
[2017-02-06] MEDS: PANTOPRAZOLE 40 MG VIAL IV SCH ×2 (08:24→16:01)
[2017-02-06] MEDS: HYDROGEL DRESSING 90 GM TUBE TP SCH (08:24)
[2017-02-06] MEDS: prednisoLONE ACETATE 1% SUSP 5 ML BOTTLE EACHEYE SCH (08:25)
[2017-02-06] MEDS ORDERED: AMIODARONE 900 MG in IV D5W 500 ML IV PRN (08:30)
[2017-02-06] MEDS: ZINC SULFATE 220 MG CAPSULE GT SCH (08:51)
[2017-02-06] MEDS ORDERED: IV SET PRIMARY PUMP SET 1 EA INFUS.SET MC ONE (08:51)
[2017-02-06] MEDS: LACTOBACILLUS RHAMNOSUS GG 1 EACH CAP.SPRINK GT SCH ×2 (08:52→16:31)
[2017-02-06] MEDS: CHOLECALCIFEROL 1,000 UNIT TABLET (VIT D3) GT SCH (08:52)
[2017-02-06] MEDS: ASCORBIC ACID 500 MG TABLET GT SCH (08:52)
[2017-02-06] MEDS: IV NS 0.9% 250 ML IV PRN (08:57)
[2017-02-06] MEDS: VIT B CMPLX 3/FA/VIT C/BIOTIN 1 TAB TABLET GT SCH (09:00)
--- NOTE | 2017-02-06 09:00 | NUR ---
ICU/RN: AM MEDS ADMINISTERED. GT MEDS HELD; PENDING PEG PLACEMENT D/T CURRENT GT MALFUNCTION. WOUND CARE RENDERED TOLERATED - UNABLE TO TOLERATE TURNING AND REPOSITIONING DT HEMODYNAMIC INSTABILITY AND PERIODS OF SVT.
[2017-02-06] MEDS: AMIODARONE 150 MG in IV D5W 100 ML IV ONE ×2 (09:12→09:45)
--- NOTE | 2017-02-06 09:13 | NUR ---
ICU/RN: DR VASQUEZ ROUNDS; POC DW DR BONDS, DR GIL AND DR TERAN. UPDATED ON ON CARDIAC AND RESP STATUS; PT ONLY RESPONDS TO PAIN. PERIOD OF SVT IN 160-180'S THIS AM. PER DR VASQUEZ, "PLEASE LET ME KNOW WHEN FAMILY ARRIVES, WE NEED TO DISCUSS THE PT'S POC AND CONSIDER COMFORT CARE, CARE SEEMS FUTILE." INFORMED DR VASQUEZ OF PT CARDIAC RHYTHM CONVERTED TO NSR IN 80-90'S. PER MD HOLD AMIODARONE DOSE. BEDSIDE UPDATES TO MD GIVEN.
--- NOTE | 2017-02-06 09:18 | NUR ---
ICU/RN: DR LOUISE HAWLEY; UPDATED ON PT STATUS. INFORMED THAT HD WAS CANCELED YESTERDAY DT PERIOD OF SVTs, STILL AWAITING PRBC'S FROM [facility] DT MULTIPLE ANTIBODIES. FOLLOWED UP WITH BLOOD BANK RE: UNITS, PER [facility] BLO[facility] PRBC UNITS STILL NOT RECEIVED.
--- NOTE | 2017-02-06 09:22 | NUR ---
ICU/RN: DR TERAN ROUNDS; UPDATED ON PT STATUS. POC DISCUSSED WITH MD; AWARE OF PERIODS OF SVTs
[2017-02-06] MEDS ORDERED: EPOETIN ALFA (10,000 UNIT) 10,000 UNIT/ML VIAL SQ ONE (09:30)
[2017-02-06] MEDS ORDERED: AMIODARONE 900 MG in IV D5W 482 ML IV PRN (10:30)
[2017-02-06] MEDS ORDERED: SECONDARY IV SET 1 EA INFUS.SET MC ONE ×2 (11:16→18:03)
[2017-02-06] MEDS ORDERED: IV NS 0.9% 1,000 ML BAG IV ONE (12:30)
[2017-02-06] MEDS: ALBUMIN 25% 25 GM in PREMIX 1 EA IV PRN (12:39)
--- NOTE | 2017-02-06 14:06 | NUR ---
RT PER DR GERARD EDOUARD ETT PULLED BACK 2CM AND SECURED AT 21CM MID LIP Addendum: 02/06/17 at 1406 by GIOVANI WHITE RT Amended: Links added.
[2017-02-06] MEDS ORDERED: FLUCONAZOLE (100 MG) 100 MG TABLET GT SCH (16:00)
[2017-02-06] MEDS: MICAFUNGIN SODIUM 100 MG in IV NS 0.9% 100 ML IV SCH (18:10)
--- NOTE | 2017-02-06 18:45 | NUR ---
ICU/RN: SON MIKE AT THE BEDSIDE; DR VASQUEZ ON PHONE WITH SON; DISCUSSED COMFORT CARE. HOWEVER, SON STATES "I NEED TO TALK TO MY FAMILY AND I WILL LET YOU KNOW."
[2017-02-06] MEDS: LATANOPROST EYE DROP 0.005% 2.5 ML BOTTLE EACHEYE SCH (21:26)
[2017-02-06] MEDS: INSULIN REGULAR, HUMAN 100 UNIT/ML 3 ML VIAL SQ PRN (23:52)
[2017-02-07] VITALS (58 sets, daily range): BP systolic 110–157; BP diastolic 32–82
[2017-02-07] MEDS: IPRATROPIUM NEB FS 0.5 MG/2.5 ML AMPUL.NEB NEB SCH ×5 (03:21→20:06)
[2017-02-07] MEDS: ALBUTEROL HALF STRENGTH 1.25 MG/3 ML VIAL.NEB NEB SCH ×5 (03:21→20:06)
[2017-02-07 04:43] LABS: BASOPHILS % (AUTO) 0.3 % (0.0-2.0); EOSINOPHILS # (AUTO) 0.1 /CMM (0.0-0.7); EOSINOPHILS % (AUTO) 0.6 % (0.0-6.0); HEMATOCRIT 21 % (33-45); HEMOGLOBIN 7.1 g/dL (11.5-14.8); LYMPHOCYTES # (AUTO) 1.4 /CMM (0.8-4.8); LYMPHOCYTES % (AUTO) 12.2 % (20.0-44.0); MEAN CORPUSCULAR HEMOGLOBIN 30 PG (26.0-33.0); MEAN CORPUSCULAR HGB CONC 34 g/dl (31.0-36.0); MEAN CORPUSCULAR VOLUME 90 fL (82-100); MONOCYTES # (AUTO) 1.3 /CMM (0.1-1.30); MONOCYTES % (AUTO) 10.9 % (2.0-12.0); NEUTROPHILS # (AUTO) 8.9 /CMM (1.8-8.9); PLATELET COUNT (AUTO) 119 /CMM (150-450); RDW COEFFICIENT OF VARIATION 15.9 (11.5-15.0); RED BLOOD CELL COUNT(AUTO) 2.35 MIL/uL (4.0-5.2); WHITE BLOOD COUNT (AUTO) 11.7 K/uL (4.3-11.0)
[2017-02-07 04:59] LABS: CALCIUM, SERUM 7.8 mg/dL (8.5-10.1); CREATININE 2.2 mg/dL (0.6-1.3); MAGNESIUM 1.9 mg/dL (1.8-2.4); PHOSPHORUS 4.4 mg/dL (2.5-4.9); POTASSIUM 4.1 mmol/L (3.5-5.1)
[2017-02-07 05:16] LABS: IRON, SERUM 111 ug/dl (50-175)
[2017-02-07] MEDS: INSULIN REGULAR, HUMAN 100 UNIT/ML 3 ML VIAL SQ PRN ×2 (05:16→13:11)
[2017-02-07] MEDS: PIPERACILLIN /TAZOBACTAM 2.25 G in IV D5W 50 ML IV SCH ×4 (05:17→23:33)
[2017-02-07] MEDS: BLOOD SUGAR DIAGNOSTIC 1 EACH STRIP IN SCH ×4 (05:17→23:33)
[2017-02-07 05:43] LABS: FERRITIN 3361 ng/mL (8-388)
[2017-02-07 05:44] LABS: LYMPHOCYTES % (MANUAL) 16 % (16-48); MONOCYTES % (MANUAL) 14 % (0-11.0); NEUTROPHILS % (MANUAL) 70 (42-76)
[2017-02-07 05:45] LABS: TOTAL IRON BINDING CAPACITY 181 ug/dl (250-450)
--- NOTE | 2017-02-07 06:30 | NUR ---
OCCUP THER - PT.WAS TX'D A TOTAL OF 2 UNITS OF PRBC'S W/O INCIDENCE LAST NIGHT. THIS MORNINGS H/H IS 7.10/08. 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 PT'S SON WAS AT BS FROM 21:00 TO 23:30PM. DR. VASQUEZ WAS PAGED FOR CLARITY OF TRANSFUSION ORDER. MD ASKED IF SON MADE A BIOETHICAL DECISION YET. THE PT'S SON SAID "NO" THAT HE HASN'T SPOKE W/HIS BROTHER YET. NO CHANGES FROM PREVIOUS ASSESSMENTS. ATTEMPTED TO P/U 3RD UNIT OF PRBC'S AT 06:45 & BLOOD BANK HAD AN ISSUE W/THE ANTIBODIES IN THE BLOOD. THEY STATED THAT THEY WILL CALL US BACK WHEN BLOOD IS READY. ENDORSED TO RN ARPI. CONT.POC.
--- NOTE | 2017-02-07 07:00 | NUR ---
ICU/RN INITIAL NOTES,AM RECEIVED REPORT FROM NIGHT NURSE. RECEIVED PT INTUBATED, OPENS EYES TO PAINFUL STIMULI, DOES NOT FOLLOW COMMANDS. ETT 7.5, 21 AT THE LIP. PT ON VENT SETTINGS ORDERED, NO ACUTE DISTRESS NOTED AT THIS TIME. PT ON TELE, SINUS WITH OCCASIONAL PAC'S. PT ANURIC. PEG TUBE IS MALFUNCTIONING, PRIMARY MD AWARE, ALONG WITH GI MD. 2 UNITS PRBC'S GIVEN OVERNIGHT, 2 MORE UNITS PENDING TO BE GIVEN WHEN READY. RIGHT CHEST TUBE IN PLACE, NO LEAKS NOTED, WILL CONTINUE TO CLOSELY MONITOR. MIDLINE AND PIV'S PATENT AND INTACT. ALL NEEDS WILL BE MET SAFETY MEASURES TAKEN, BED IN LOW POSITION, SIDE RAILS UP, CALL LIGHT WITHIN REACH.
[2017-02-07] MEDS: LEVOTHYROXINE SODIUM 125 MCG TABLET PO SCH (07:30)
[2017-02-07] MEDS: ACETYLCYSTEINE 10% SOLN 400 MG/4 ML VIAL NEB SCH ×2 (08:07→15:43)
[2017-02-07] MEDS: CHOLECALCIFEROL 1,000 UNIT TABLET (VIT D3) GT SCH (09:00)
[2017-02-07] MEDS: ZINC SULFATE 220 MG CAPSULE GT SCH (09:00)
[2017-02-07] MEDS: LACTOBACILLUS RHAMNOSUS GG 1 EACH CAP.SPRINK GT SCH ×2 (09:00→17:00)
[2017-02-07] MEDS: ASCORBIC ACID 500 MG TABLET GT SCH (09:00)
[2017-02-07] MEDS: VIT B CMPLX 3/FA/VIT C/BIOTIN 1 TAB TABLET GT SCH (09:00)
[2017-02-07] MEDS: HYDROGEL DRESSING 90 GM TUBE TP SCH (09:52)
[2017-02-07] MEDS: LINEZOLID RTU BAG 600 MG in PREMIX 1 EA IV SCH ×2 (09:57→21:22)
[2017-02-07] MEDS: PANTOPRAZOLE 40 MG VIAL IV SCH ×2 (09:57→17:59)
[2017-02-07] MEDS: LEVOTHYROXINE INJ 100 MCG VIAL IV SCH (09:57)
[2017-02-07] MEDS: TIMOLOL 0.25% SOL OPHTH 10 ML BOTTLE EACHEYE SCH ×2 (10:04→17:57)
[2017-02-07] MEDS: prednisoLONE ACETATE 1% SUSP 5 ML BOTTLE EACHEYE SCH (10:04)
--- NOTE | 2017-02-07 11:00 | NUR ---
ICU/RN: PER PULMONARY, WEANING STARTED. WILL CONTINUE TO MONITOR
--- NOTE | 2017-02-07 11:44 | NUR ---
WOUND CARE CONSULT PATIENT SEEN AND RIGHT FOOT WOUNDS AND RIGHT HAND WOUND EVALUATED. PLEASE SEE WELDING OPERATOR ASSESSMENT IN PCS FOR TODAY ALONG WITH ALL RECOMMENDATIONS. ALL RECOMMENDATIONS DISCUSSED WITH MD AND MD IN AGREEMENT. ALL DISCUSSED WITH NURSING AT THE BEDSIDE. CONTINUE ALL SKIN MANAGEMENT AND PREVENTION MEASURES PER CURRENT PLAN OF CARE. RECOMMEND DIETARY CONSULT. PATIENT NOTED TO CONTINUE TO HAVE MULTIPLE CO-MORBIDITIES AT THIS TIME. Addendum: 02/07/17 at 1147 by BOBBY KELLER WNDNU Amended: Links added.
--- NOTE | 2017-02-07 12:00 | NUR ---
ICU/RN: WOUND CARE AT BEDSIDE, PT ASSESSED. WILL FOLLOW ORDERS
[2017-02-07 12:28] LABS: ABG BASE EXCESS 0.1 mmol/L; ABG OXYGEN SATURATION 98.2 % (92.0-98.5); ABG PCO2 35.9 mmHg (35.0-45.0); ABG PH 7.444 (7.350-7.450); ABG PO2 145.7 mmHg (75.0-100.0); AaDO2 98.2 mmHg; COHb 1.7 % (0.5-1.5); MetHb 0.9 % (0.0-1.5); O2Hb 95.6 % (94.0-97.0); PEEP,BG 5 cm H2O; SITE, ABG Right Brachial; VENT MODE, BG SIMV PSV12; VT, ABG 400 mL
--- NOTE | 2017-02-07 15:00 | NUR ---
PT PLACED BACK ON A/C MODE. PER
--- NOTE | 2017-02-07 15:00 | NUR ---
ICU/RN: PER PULMONARY PT PLACED ON AC MODE. SCHEDULED WITH SON TO BE AT BEDSIDE AT 0830AM FOR EXTUBATION. WILL CONTINUE TO MONITOR AND ASSESS
--- NOTE | 2017-02-07 16:00 | NUR ---
ICU/RN: RECEIVED CALL FROM REGARDING HIS CLOGGED GTUBE. INFORMED HIM THAT PT HAS BEEN SEEN BY , HE SAID HE WILL SPEAK TO AND THE PT WILL BE CARED FOR WHEN STABLE.
[2017-02-07] MEDS: AMIODARONE HCL 200 MG TABLET PO SCH (17:00)
[2017-02-07] MEDS: MICAFUNGIN SODIUM 100 MG in IV NS 0.9% 100 ML IV SCH (17:59)
[2017-02-07] MEDS ORDERED: BLOOD IV SET 1 EA INFUS.SET MC ONE (18:40)
--- NOTE | 2017-02-07 19:33 | NUR ---
ICU/RN ENDING NOTES,AM REPORT ENDORSED TO NIGHT NURSE FOR CONTINUATION OF CARE. ALL NEEDS MET, BLOOD TRANSFUSING IN PROCESS, PT TOLERATING WELL, NO S/S OF ADVERSE REACTIONS NOTED. PT ON VENT SETTINGS ORDERED BY MD, NO ACUTE DISTRESS NOTED. PT SINUS ON TELE. PEG CLOGGED, MDS AWARE, WILL FOLLOW UP. ALL NEEDS MET, SAFETY MEASURES TAKEN BED IN LOW POSITION, SIDE RAILS UP
[2017-02-07] MEDS: LATANOPROST EYE DROP 0.005% 2.5 ML BOTTLE EACHEYE SCH (21:23)
[2017-02-07] MEDS ORDERED: SECONDARY IV SET 1 EA INFUS.SET MC ONE (23:35)
[2017-02-08] VITALS (72 sets, daily range): BP systolic 103–169; BP diastolic 48–86
[2017-02-08] MEDS: INSULIN REGULAR, HUMAN 100 UNIT/ML 3 ML VIAL SQ PRN ×2 (00:19→23:49)
[2017-02-08] MEDS: ALBUTEROL HALF STRENGTH 1.25 MG/3 ML VIAL.NEB NEB SCH ×7 (00:25→22:51)
[2017-02-08] MEDS: ACETYLCYSTEINE 10% SOLN 400 MG/4 ML VIAL NEB SCH ×4 (00:25→22:51)
[2017-02-08] MEDS: IPRATROPIUM NEB FS 0.5 MG/2.5 ML AMPUL.NEB NEB SCH ×7 (00:25→22:51)
[2017-02-08 04:58] LABS: BASOPHILS % (AUTO) 0.4 % (0.0-2.0); EOSINOPHILS # (AUTO) 0.1 /CMM (0.0-0.7); EOSINOPHILS % (AUTO) 0.9 % (0.0-6.0); HEMATOCRIT 33 % (33-45); HEMOGLOBIN 11.3 g/dL (11.5-14.8); LYMPHOCYTES # (AUTO) 1.1 /CMM (0.8-4.8); LYMPHOCYTES % (AUTO) 13.2 % (20.0-44.0); MEAN CORPUSCULAR HEMOGLOBIN 30 PG (26.0-33.0); MEAN CORPUSCULAR HGB CONC 34 g/dl (31.0-36.0); MEAN CORPUSCULAR VOLUME 89 fL (82-100); MONOCYTES % (AUTO) 12.2 % (2.0-12.0); NEUTROPHILS # (AUTO) 6.1 /CMM (1.8-8.9); NEUTROPHILS % (AUTO) 73.3 % (43.0-81.0); PLATELET COUNT (AUTO) 109 /CMM (150-450); RDW COEFFICIENT OF VARIATION 14.8 (11.5-15.0); RED BLOOD CELL COUNT(AUTO) 3.75 MIL/uL (4.0-5.2); WHITE BLOOD COUNT (AUTO) 8.4 K/uL (4.3-11.0)
[2017-02-08 05:20] LABS: ALBUMIN 2.3 g/dL (3.4-5.0); BILIRUBIN,TOTAL 1.7 mg/dL (0.2-1.0); CALCIUM, SERUM 7.9 mg/dL (8.5-10.1); CREATININE 2.7 mg/dL (0.6-1.3); MAGNESIUM 1.9 mg/dL (1.8-2.4); PHOSPHORUS 5.4 mg/dL (2.5-4.9); POTASSIUM 4.4 mmol/L (3.5-5.1); TOTAL PROTEIN, SERUM 7.3 g/dL (6.4-8.2)
[2017-02-08] MEDS: PIPERACILLIN /TAZOBACTAM 2.25 G in IV D5W 50 ML IV SCH ×4 (05:28→23:42)
[2017-02-08] MEDS: BLOOD SUGAR DIAGNOSTIC 1 EACH STRIP IN SCH ×4 (05:32→23:42)
[2017-02-08 05:36] LABS: INR 1.06 (0.87-1.13); PROTHROMBIN TIME 11.4 SECS (9.5-12.7)
--- NOTE | 2017-02-08 08:00 | NUR ---
ICU/RN INITIAL NOTES,AM RECEIVED REPORT FROM NIGHT NURSE. RECEIVED PT INTUBATED, OPENS EYES TO PAINFUL STIMULI, DOES NOT FOLLOW COMMANDS. ETT 7.5, 21 AT THE LIP. PT ON VENT SETTINGS ORDERED, NO ACUTE DISTRESS NOTED AT THIS TIME. PT ON TELE, SINUS WITH OCCASIONAL PAC'S. PT ANURIC. PEG TUBE IS MALFUNCTIONING SCHEDULED TO BE REPLACED BY THIS AM.N OVERNIGHT. RIGHT CHEST TUBE IN PLACE, NO LEAKS NOTED, WILL CONTINUE TO CLOSELY MONITOR. MIDLINE AND PIV'S PATENT AND INTACT. ALL NEEDS WILL BE MET SAFETY MEASURES TAKEN, BED IN LOW POSITION, SIDE RAILS UP, CALL LIGHT WITHIN REACH. PROCEDURE CONSENT IN CHART ALONG WITH ANAESTHESIA CONSENT. PT WILL ALSO BE WEANED AGAIN TODAY FOR POSSIBLE EXTUBATION.
[2017-02-08] MEDS: PANTOPRAZOLE 40 MG VIAL IV SCH ×2 (08:32→17:12)
[2017-02-08] MEDS: LEVOTHYROXINE INJ 100 MCG VIAL IV SCH (08:32)
[2017-02-08] MEDS: ASCORBIC ACID 500 MG TABLET GT SCH (08:33)
[2017-02-08] MEDS: CHOLECALCIFEROL 1,000 UNIT TABLET (VIT D3) GT SCH (08:33)
[2017-02-08] MEDS: VIT B CMPLX 3/FA/VIT C/BIOTIN 1 TAB TABLET GT SCH (08:33)
[2017-02-08] MEDS: LACTOBACILLUS RHAMNOSUS GG 1 EACH CAP.SPRINK GT SCH ×2 (08:33→17:12)
[2017-02-08] MEDS: ZINC SULFATE 220 MG CAPSULE GT SCH (08:33)
[2017-02-08] MEDS: LINEZOLID RTU BAG 600 MG in PREMIX 1 EA IV SCH ×2 (08:34→21:39)
[2017-02-08] MEDS: AMIODARONE HCL 200 MG TABLET PO SCH ×2 (08:34→17:13)
[2017-02-08] MEDS: HYDROGEL DRESSING 90 GM TUBE TP SCH (08:38)
[2017-02-08] MEDS: TIMOLOL 0.25% SOL OPHTH 10 ML BOTTLE EACHEYE SCH ×2 (08:41→18:22)
[2017-02-08] MEDS: prednisoLONE ACETATE 1% SUSP 5 ML BOTTLE EACHEYE SCH (08:41)
[2017-02-08] MEDS ORDERED: EPOETIN ALFA (10,000 UNIT) 10,000 UNIT/ML VIAL SQ ONE (12:30)
--- NOTE | 2017-02-08 12:45 | NUR ---
ICU/RN: NEW PEG PLACED BY . PT TOLERATED WELL, NO ISSUES NOTED, NO S/S OF BLEEDING NOTED. PER MD WE ARE ABLE TO START FEEDING NOW. WILL CONTINUE TO MONITOR AND ASSESS.
[2017-02-08] MEDS: RENAL NOVASOURCE 1,000 ML BOTTLE GT PRN (13:42)
[2017-02-08] MEDS ORDERED: DC PROPOFOL WHEN EXTUBATED XX PRN (14:00)
--- NOTE | 2017-02-08 15:26 | NUR ---
ICU/RN: PER MD ORDERS PT PLACED ON SIMV MODE. WILL CONTINUE TO CLOSELY MONITOR AND ASSESS, POSSIBLE EXTUBATION
--- NOTE | 2017-02-08 15:53 | NUR ---
ICU/RN INITIAL NOTES,AM RECEIVED REPORT FROM NIGHT NURSE. RECEIVED PT INTUBATED, OPENS EYES TO PAINFUL STIMULI, DOES NOT FOLLOW COMMANDS. ETT 7.5, 21 AT THE LIP. PT ON VENT SETTINGS ORDERED, NO ACUTE DISTRESS NOTED AT THIS TIME. PT ON TELE, SINUS WITH OCCASIONAL PAC'S. PT ANURIC. PEG TUBE IS MALFUNCTIONING SCHEDULED TO BE REPLACED BY THIS AM.N OVERNIGHT. RIGHT CHEST TUBE IN PLACE, NO LEAKS NOTED, WILL CONTINUE TO CLOSELY MONITOR. MIDLINE AND PIV'S PATENT AND INTACT. ALL NEEDS WILL BE MET SAFETY MEASURES TAKEN, BED IN LOW POSITION, SIDE RAILS UP, CALL LIGHT WITHIN REACH. PROCEDURE CONSENT IN CHART ALONG WITH ANAESTHESIA CONSENT. PT WILL ALSO BE WEANED AGAIN TODAY FOR POSSIBLE EXTUBATION. Addendum: 02/08/17 at 1600 by YI FLORES RN CHARTED AT INCORRECT TIME, NEEDED TO BE CHARTED AT 0800
[2017-02-08 16:26] LABS: ABG BASE EXCESS -1.1 mmol/L; ABG OXYGEN SATURATION 98.3 % (92.0-98.5); ABG PCO2 32.3 mmHg (35.0-45.0); ABG PH 7.454 (7.350-7.450); ABG PO2 156.4 mmHg (75.0-100.0); AaDO2 91.7 mmHg; COHb 0.9 % (0.5-1.5); O2Hb 96.4 % (94.0-97.0); PEEP,BG 5 cm H2O; SITE, ABG Left Radial
--- NOTE | 2017-02-08 16:35 | NUR ---
ICU/RN: PT EXTUBATED WITH MD ORDERS, TOLERATING WELL, NO DISTRESS NOTED. MAINTAINING 02 SAT >95%.
--- NOTE | 2017-02-08 16:45 | NUR ---
PT EXTUBATED PER DR. TERAN ORDERS. PT PLACED ON 6L NC WITH HUMIDIFIER. NO STRIDOR PRESENT. NO RESP. DISTRESS NOTED. ARPI RN AWARE.
[2017-02-08] MEDS: MICAFUNGIN SODIUM 100 MG in IV NS 0.9% 100 ML IV SCH (17:13)
--- NOTE | 2017-02-08 18:38 | NUR ---
ICU/RN ENDING NOTES,AM REPORT WILL BE ENDORSED TO NIGHT NURSE FOR CONTINUATION OF CARE. ALL NEEDS MET. PT EXTUBATED, PLACED ON NASAL CANULA, NO DISTRESS, TOLERATING WELL. NEW PEG TUBE PLACED, TUBE FEEDING STARTED, TOLERATING WELL. ALL NEEDS MET, SAFETY MEASURES TAKEN, BED IN LOW POSITION, SIDE RAILS UP, CALL LIGHT WITHIN REACH.
--- NOTE | 2017-02-08 19:00 | NUR ---
ICU/RN- HD NURSE AT BEDSIDE FOR HEMODIALYSIS. PT IN BED. NO ACUTE DISTRESS NOTED. ON O2 5L/MIN. NO S/SX OF RESP FAILURE NOTED. WILL MONITOR FOR S/SX
--- NOTE | 2017-02-08 20:00 | NUR ---
ICU/RN- PT IN BED, ALERT TO NAME. HD NURSE AT BEDSIDE FOR DIALYSIS. ON MONITOR W/ SR 80S. ON O2 5L/MIN VIA NC W/ O2 SAT 100%. RESP EVEN AND UNLABORED. NO S/SX OF RESP DISTRESS NOTED. MIDLINE IN FLIP AND L EJ 22 G, PATENT AND INTACT. REPOSITIONED FOR COMFORT. GT PATENT AND INTACT. FEEDING @ 40ML/HR. 20CC OF RESIDUAL NOTED. HOB UP AT ALL TIMES. BED LOW AND IN LOCKED POSITION. WILL MONITOR PT ACCORDINGLY.
[2017-02-08] MEDS: LATANOPROST EYE DROP 0.005% 2.5 ML BOTTLE EACHEYE SCH (21:44)
[2017-02-09] VITALS (46 sets, daily range): BP systolic 133–163; BP diastolic 55–90
[2017-02-09] MEDS: IPRATROPIUM NEB FS 0.5 MG/2.5 ML AMPUL.NEB NEB SCH ×6 (03:57→23:54)
[2017-02-09] MEDS: ALBUTEROL HALF STRENGTH 1.25 MG/3 ML VIAL.NEB NEB SCH ×6 (03:57→23:54)
[2017-02-09 05:17] LABS: BASOPHILS % (AUTO) 0.4 % (0.0-2.0); EOSINOPHILS # (AUTO) 0.1 /CMM (0.0-0.7); EOSINOPHILS % (AUTO) 0.8 % (0.0-6.0); HEMATOCRIT 34 % (33-45); HEMOGLOBIN 11.4 g/dL (11.5-14.8); LYMPHOCYTES # (AUTO) 1.3 /CMM (0.8-4.8); LYMPHOCYTES % (AUTO) 13.4 % (20.0-44.0); MEAN CORPUSCULAR HEMOGLOBIN 30 PG (26.0-33.0); MEAN CORPUSCULAR HGB CONC 34 g/dl (31.0-36.0); MEAN CORPUSCULAR VOLUME 88 fL (82-100); MONOCYTES # (AUTO) 1.4 /CMM (0.1-1.30); MONOCYTES % (AUTO) 14.3 % (2.0-12.0); NEUTROPHILS # (AUTO) 6.9 /CMM (1.8-8.9); NEUTROPHILS % (AUTO) 71.1 % (43.0-81.0); PLATELET COUNT (AUTO) 108 /CMM (150-450); RDW COEFFICIENT OF VARIATION 15.8 (11.5-15.0); WHITE BLOOD COUNT (AUTO) 9.8 K/uL (4.3-11.0)
[2017-02-09 05:34] LABS: CREATININE 2.3 mg/dL (0.6-1.3); MAGNESIUM 1.9 mg/dL (1.8-2.4); PHOSPHORUS 4.4 mg/dL (2.5-4.9); POTASSIUM 3.8 mmol/L (3.5-5.1)
[2017-02-09] MEDS: BLOOD SUGAR DIAGNOSTIC 1 EACH STRIP IN SCH ×4 (05:34→23:33)
[2017-02-09] MEDS: PIPERACILLIN /TAZOBACTAM 2.25 G in IV D5W 50 ML IV SCH (05:34)
--- NOTE | 2017-02-09 06:42 | NUR ---
ICU/RN- NAD NOTED. AM CARE PROVIDED. ALL NEEDS ATTENDED AND MET. WILL ENDORSE TO AM SHIFT FOR CONTINUATION OF CARE.
[2017-02-09] MEDS: ACETYLCYSTEINE 10% SOLN 400 MG/4 ML VIAL NEB SCH ×3 (07:35→23:53)
--- NOTE | 2017-02-09 07:40 | NUR ---
ICU/RN INITIAL NOTES,AM RECEIVED REPORT FROM NIGHT NURSE. PT ON NASAL CANULA, 5LITERS TOLERATING WELL, MAINTAINING 02 >95%. OPENS EYES TO PAINFUL STIMULI, DOES NOT FOLLOW COMMANDS. PT ON TELE, SINUS WITH OCCASIONAL PAC'S. PT ANURIC. GTUBE FEEDING INFUSING, RESIDUAL NOTED WILL CONTINUE TO MONITOR. RIGHT CHEST TUBE IN PLACE, NO LEAKS NOTED, WILL CONTINUE TO CLOSELY MONITOR. MIDLINE AND PIV'S PATENT AND INTACT. ALL NEEDS WILL BE MET SAFETY MEASURES TAKEN, BED IN LOW POSITION, SIDE RAILS UP, CALL LIGHT WITHIN REACH.
[2017-02-09] MEDS: VIT B CMPLX 3/FA/VIT C/BIOTIN 1 TAB TABLET GT SCH (08:29)
[2017-02-09] MEDS: PANTOPRAZOLE 40 MG VIAL IV SCH ×2 (08:29→17:38)
[2017-02-09] MEDS: LACTOBACILLUS RHAMNOSUS GG 1 EACH CAP.SPRINK GT SCH ×2 (08:29→17:39)
[2017-02-09] MEDS: ZINC SULFATE 220 MG CAPSULE GT SCH (08:29)
[2017-02-09] MEDS: CHOLECALCIFEROL 1,000 UNIT TABLET (VIT D3) GT SCH (08:29)
[2017-02-09] MEDS: LEVOTHYROXINE INJ 100 MCG VIAL IV SCH (08:29)
[2017-02-09] MEDS: ASCORBIC ACID 500 MG TABLET GT SCH (08:29)
[2017-02-09] MEDS: AMIODARONE HCL 200 MG TABLET PO SCH ×2 (08:30→17:38)
[2017-02-09] MEDS: HYDROGEL DRESSING 90 GM TUBE TP SCH (08:32)
[2017-02-09] MEDS: TIMOLOL 0.25% SOL OPHTH 10 ML BOTTLE EACHEYE SCH ×2 (08:33→17:39)
[2017-02-09] MEDS: prednisoLONE ACETATE 1% SUSP 5 ML BOTTLE EACHEYE SCH (08:34)
[2017-02-09] MEDS: LINEZOLID 600 MG TABLET GT SCH ×2 (09:34→21:35)
--- NOTE | 2017-02-09 09:36 | NUR ---
ICU/RN: PER CHEST TUBE CLAMPED, WILL DO CHEST RAY AT 1130.
[2017-02-09] MEDS: CEFTRIAXONE 1 G in IV D5W 50 ML IV SCH (11:20)
[2017-02-09] MEDS: RENAL NOVASOURCE 1,000 ML BOTTLE GT PRN (17:36)
[2017-02-09] MEDS: MICAFUNGIN SODIUM 100 MG in IV NS 0.9% 100 ML IV SCH (17:38)
--- NOTE | 2017-02-09 18:29 | NUR ---
ICU/RN ENDING NOTES,AM REPORT WILL BE ENDORSED TO NIGHT NURSE FOR CONTINUATION OF CARE. ALL NEEDS MET. PT on NASAL CANULA, NO DISTRESS, TOLERATING WELL. TUBE FEEDING INFUSING, RESIDUAL NOTED AT 1600, REASSESSED AND 0ML RESIDUAL AT THIS TIME. CHEST TUBE CLAMPED PER , WILL REMOVE TOMORROW. ALL NEEDS MET, SAFETY MEASURES TAKEN, BED IN LOW POSITION, SIDE RAILS UP, CALL LIGHT WITHIN REACH.
--- NOTE | 2017-02-09 20:00 | NUR ---
ICU/RN- PT IN BED, ALERT TO NAME.ON MONITOR W/ SR 75. ON O2 5L/MIN VIA NC W/ O2 SAT 100%. RESP EVEN AND UNLABORED. NO S/SX OF RESP DISTRESS NOTED. MIDLINE IN FLIP AND L EJ 22 G, PATENT AND INTACT. REPOSITIONED FOR COMFORT. GT PATENT AND INTACT. FEEDING @ 40ML/HR. 80CC OF RESIDUAL NOTED. R LAT CHEST TUBE IN PLACE, CLAMPED PER AM NURSE. PER REPORT, MD WILL TRY TO REMOVE CHEST TUBE IN THE AM. HOB UP AT ALL TIMES. BED LOW AND IN LOCKED POSITION. WILL MONITOR PT ACCORDINGLY.
[2017-02-09] MEDS: LATANOPROST EYE DROP 0.005% 2.5 ML BOTTLE EACHEYE SCH (21:48)
[2017-02-09] MEDS: INSULIN REGULAR, HUMAN 100 UNIT/ML 3 ML VIAL SQ PRN (23:40)
[2017-02-10] VITALS (44 sets, daily range): BP systolic 106–181; BP diastolic 59–105
[2017-02-10] MEDS: IPRATROPIUM NEB FS 0.5 MG/2.5 ML AMPUL.NEB NEB SCH ×6 (03:06→23:08)
[2017-02-10] MEDS: ALBUTEROL HALF STRENGTH 1.25 MG/3 ML VIAL.NEB NEB SCH ×6 (03:06→23:08)
[2017-02-10 05:11] LABS: BASOPHILS % (AUTO) 0.4 % (0.0-2.0); EOSINOPHILS # (AUTO) 0.1 /CMM (0.0-0.7); EOSINOPHILS % (AUTO) 0.9 % (0.0-6.0); HEMATOCRIT 34 % (33-45); HEMOGLOBIN 11.3 g/dL (11.5-14.8); LYMPHOCYTES # (AUTO) 1.3 /CMM (0.8-4.8); LYMPHOCYTES % (AUTO) 12.6 % (20.0-44.0); MEAN CORPUSCULAR HEMOGLOBIN 30 PG (26.0-33.0); MEAN CORPUSCULAR HGB CONC 34 g/dl (31.0-36.0); MEAN CORPUSCULAR VOLUME 89 fL (82-100); MONOCYTES # (AUTO) 1.3 /CMM (0.1-1.30); MONOCYTES % (AUTO) 13.2 % (2.0-12.0); NEUTROPHILS # (AUTO) 7.3 /CMM (1.8-8.9); NEUTROPHILS % (AUTO) 72.9 % (43.0-81.0); PLATELET COUNT (AUTO) 108 /CMM (150-450); RDW COEFFICIENT OF VARIATION 15.6 (11.5-15.0)
[2017-02-10 05:42] LABS: CALCIUM, SERUM 8.1 mg/dL (8.5-10.1); CREATININE 2.7 mg/dL (0.6-1.3); MAGNESIUM 1.9 mg/dL (1.8-2.4); POTASSIUM 3.7 mmol/L (3.5-5.1)
[2017-02-10] MEDS: BLOOD SUGAR DIAGNOSTIC 1 EACH STRIP IN SCH ×3 (06:13→17:33)
--- NOTE | 2017-02-10 06:37 | NUR ---
ICU/RN- ALL NEEDS ATTENDED AND MET. AM CARE PROVIDED. NO ACUTE DISTRESS AT THIS TIME. WILL ENDORSE TO AM SHIFT FOR CONTINUATION OF CARE.
[2017-02-10] MEDS: ACETYLCYSTEINE 10% SOLN 400 MG/4 ML VIAL NEB SCH ×3 (07:54→23:08)
--- NOTE | 2017-02-10 08:00 | NUR ---
high school agriculture teacher received pt in bed on 4l nc sat 100%, vs stable, sbp elevated will hold bp meds as pt is going to be dialysed next hr, abd soft active bowl sounds, gt residual 140cc hold feeding will inform md, chest tube clamped as ordered, dvt pums on iv access patent infusing tko as ordered, fall precautions taken call light w/ in reach will continue to monitor.
[2017-02-10] MEDS: PANTOPRAZOLE 40 MG VIAL IV SCH ×2 (08:10→17:32)
[2017-02-10] MEDS: AMIODARONE HCL 200 MG TABLET PO SCH ×2 (08:10→17:32)
[2017-02-10] MEDS: TIMOLOL 0.25% SOL OPHTH 10 ML BOTTLE EACHEYE SCH ×2 (08:11→17:33)
[2017-02-10] MEDS: prednisoLONE ACETATE 1% SUSP 5 ML BOTTLE EACHEYE SCH (08:11)
[2017-02-10] MEDS: LEVOTHYROXINE INJ 100 MCG VIAL IV SCH (08:11)
[2017-02-10] MEDS: LACTOBACILLUS RHAMNOSUS GG 1 EACH CAP.SPRINK GT SCH ×2 (08:12→17:32)
[2017-02-10] MEDS: ASCORBIC ACID 500 MG TABLET GT SCH (08:13)
[2017-02-10] MEDS: CHOLECALCIFEROL 1,000 UNIT TABLET (VIT D3) GT SCH (08:13)
[2017-02-10] MEDS: HYDROGEL DRESSING 90 GM TUBE TP SCH (08:13)
[2017-02-10] MEDS: ZINC SULFATE 220 MG CAPSULE GT SCH (08:13)
[2017-02-10] MEDS: VIT B CMPLX 3/FA/VIT C/BIOTIN 1 TAB TABLET GT SCH (08:13)
[2017-02-10] MEDS: LINEZOLID 600 MG TABLET GT SCH ×2 (08:13→21:49)
[2017-02-10] MEDS: CEFTRIAXONE 1 G in IV D5W 50 ML IV SCH (10:28)
[2017-02-10] MEDS: METOCLOPRAMIDE HCL 10 MG/2 ML VIAL IV SCH ×3 (10:29→21:49)
--- NOTE | 2017-02-10 13:42 | NUR ---
agricultural commodities grader dr. gould at bedside removed chest tube dressing applied no bleeding noted chest xray ordered called radiology sopke with Louann regarding chest xray ordered.
--- NOTE | 2017-02-10 17:15 | NUR ---
agricultural economics professor pt went on uncontrolled afib hr 140-150s sbp stable, called Dr. De La Vega orders received at 1745 to do abg copy sent to dr. de la vega awaiting for further orders.
[2017-02-10] MEDS ORDERED: SECONDARY IV SET 1 EA INFUS.SET MC ONE (17:28)
[2017-02-10] MEDS: MICAFUNGIN SODIUM 100 MG in IV NS 0.9% 100 ML IV SCH (17:33)
[2017-02-10] MEDS: INSULIN REGULAR, HUMAN 100 UNIT/ML 3 ML VIAL SQ PRN (17:34)
[2017-02-10 18:10] LABS: ABG OXYGEN SATURATION 96.4 % (92.0-98.5); ABG PCO2 33.2 mmHg (35.0-45.0); ABG PH 7.506 (7.350-7.450); ABG PO2 79.9 mmHg (75.0-100.0); AaDO2 116.6 mmHg; COHb 1.4 % (0.5-1.5); MetHb 0.9 % (0.0-1.5); O2Hb 94.2 % (94.0-97.0); SITE, ABG Right Radial; VENT MODE, BG N/C
[2017-02-10] MEDS ORDERED: IV SET PRIMARY PUMP SET 1 EA INFUS.SET MC ONE (18:19)
[2017-02-10] MEDS ORDERED: IV NS 0.9% 250 ML IV ONE (18:19)
[2017-02-10] MEDS: HYDROMORPHONE 1 MG/1 ML DISP.SYRIN IV PRN (18:26)
--- NOTE | 2017-02-10 19:39 | NUR ---
FIELD INSTALLATION TECHNICIAN. INITIAL ASSESSMENT RECEIVED THE PT REST ON THE BED. PT IS LETHARGIC OXYGEN 4L VIA NASAL CANNULA. SAT 97%. COLOR STRAINER SHOWING AFIB.IV RT UPPER ARM MID LINE LT UPPER ARM AV FISTULA GT INTACT. NOVA SOURCE 40 ML/H.HOB ELEVATED. AFEBRILE. TURN AND REPOSITION Q2H. WILL CONTINUE TO MONITOR VITALS.
[2017-02-10] MEDS: LATANOPROST EYE DROP 0.005% 2.5 ML BOTTLE EACHEYE SCH (22:14)
[2017-02-11] VITALS (19 sets, daily range): BP systolic 122–184; BP diastolic 52–123
[2017-02-11] MEDS: INSULIN REGULAR, HUMAN 100 UNIT/ML 3 ML VIAL SQ PRN ×2 (00:27→12:11)
[2017-02-11] MEDS: BLOOD SUGAR DIAGNOSTIC 1 EACH STRIP IN SCH ×4 (01:18→17:14)
--- NOTE | 2017-02-11 01:18 | NUR ---
PRIMARY CLASS TEACHER. PT GT FEEDING RESIDUAL 200ML. FEEDING HELD WILL CONTINUE TO MONITOR.
[2017-02-11] MEDS: METOCLOPRAMIDE HCL 10 MG/2 ML VIAL IV SCH ×4 (02:28→21:06)
--- NOTE | 2017-02-11 03:22 | NUR ---
RETAIL PHARMACY TECHNICIAN. AM CARE ORAL CARE BED BATH GIVEN. LINEN CHANGED. REMAINING SAME OXYGEN 4L NASAL CANNULA. TOLERATED WELL. SAT 98%. NO ACUTE DISTRESS NOTED. SPACE AND MISSILE DEFENSE OPERATIONS SHOWING NSR AT THIS TIME. AFIB IN AND OUT. IV RT UPPER ARM PICC LINE. TKO RUNNING. GT INTACT. FEEDING HELD. RESIDUAL 185ML. AFEBRILE HOB ELEVATED. TURN AND REPOSITION Q2H. WILL CONTINUE TO MONITOR VITALS.
[2017-02-11] MEDS: IPRATROPIUM NEB FS 0.5 MG/2.5 ML AMPUL.NEB NEB SCH ×5 (03:30→23:55)
[2017-02-11] MEDS: ALBUTEROL HALF STRENGTH 1.25 MG/3 ML VIAL.NEB NEB SCH ×5 (03:30→23:55)
--- NOTE | 2017-02-11 07:15 | NUR ---
FINISHER SCREWDOWN NOTES RECEIVED PATIENT NOT IN ACUTE DISTRESS , RESPIRATIONS EVEN AND UNLABORED WITH SPO2 OF 98% VIA 4LPM NC , RESPONSIVE TO VERBAL /TACTILE STIMULI , OPENS EYES , SR 75 ON BEDSIDE MONITOR , GT PATENT AND INTACT GT FEEDING HELD PT HAS HIGH RESIDUALS PER PM NURSE , , ON SIRI BED AND DVT PUMPS IN PLACE . IV OF L EJ # 22 PATENT AND INTACT AND FLIP MIDLINE PATENT AND INTACT WITH NS @ TKO , LYNNE AV FISTULA WITH BRUIT AND THRILL , ALL NEEDS ATTENDED , BED ON LOW AND LOCKED POSITION , SIDE RAILS X2 , HOB @ 35 , WILL CONTINUE TO MONITOR
--- NOTE | 2017-02-11 07:15 | NUR ---
SENIOR LANDSCAPE ARCHITECT DR VASQUEZ SEEN THE PT OK TO TRANSFER
[2017-02-11] MEDS: ACETYLCYSTEINE 10% SOLN 400 MG/4 ML VIAL NEB SCH ×3 (08:12→23:56)
[2017-02-11] MEDS: LINEZOLID 600 MG TABLET GT SCH ×2 (08:23→21:07)
[2017-02-11] MEDS: LACTOBACILLUS RHAMNOSUS GG 1 EACH CAP.SPRINK GT SCH ×2 (08:23→16:35)
[2017-02-11] MEDS: CHOLECALCIFEROL 1,000 UNIT TABLET (VIT D3) GT SCH (08:23)
[2017-02-11] MEDS: VIT B CMPLX 3/FA/VIT C/BIOTIN 1 TAB TABLET GT SCH (08:23)
[2017-02-11] MEDS: ZINC SULFATE 220 MG CAPSULE GT SCH (08:23)
[2017-02-11] MEDS: LEVOTHYROXINE INJ 100 MCG VIAL IV SCH (08:23)
[2017-02-11] MEDS: PANTOPRAZOLE 40 MG VIAL IV SCH ×2 (08:23→16:35)
[2017-02-11] MEDS: AMIODARONE HCL 200 MG TABLET PO SCH ×3 (08:24→16:35)
[2017-02-11] MEDS: ASCORBIC ACID 500 MG TABLET GT SCH (08:24)
[2017-02-11] MEDS: TIMOLOL 0.25% SOL OPHTH 10 ML BOTTLE EACHEYE SCH ×2 (08:25→16:36)
[2017-02-11] MEDS: prednisoLONE ACETATE 1% SUSP 5 ML BOTTLE EACHEYE SCH (08:25)
[2017-02-11] MEDS: HYDROGEL DRESSING 90 GM TUBE TP SCH ×2 (08:25→16:34)
[2017-02-11] MEDS: RENAL NOVASOURCE 1,000 ML BOTTLE GT PRN (08:28)
--- NOTE | 2017-02-11 08:28 | NUR ---
DIRECTOR DERMATOLOGY NOTES GT FEEDING RESTARTED , NO RESIDUALS NOTED , WILL CONTINUE TO MONITOR
[2017-02-11] MEDS: HYDROMORPHONE 1 MG/1 ML DISP.SYRIN IV PRN (08:38)
--- NOTE | 2017-02-11 10:30 | NUR ---
EXAMINING OFFICER NOTES TRANSFERRED PT VIA ACLS PROTOCOL TO ROOM 111-1 WILLIAM STATUS , STABLE AT THIS TIME , AFEBRILE , NO AGUSTIN NOTED , REPORT GIVEN TO EDEN FOR CONTINUITY OF CARE ,
--- NOTE | 2017-02-11 10:30 | NUR ---
RN NOTES RECEIVED PT ON BED, FROM ICU IN ROOM 111-1 , PT IS LETHARGIC , RESPONSE TO PAINFUL STIMULI , NONVERBAL AT THIS TIME , RESPIRATION EVEN AND UNLABORED, ON O2 AT 4L N/C, O2 SAT 98%. ON TELE SR IN 70'S , RT UPPER ARM MID LINE, AND L EJ IV SITE CDI, GT INTACT WITH NOVASOURCE AT 40 ML/H NO RESIDUAL NOTED AT THIS TIME , SR UP x3, CALL LIGHT WITHIN EASY REACH, HOB ELEVATED. VSS STABLE , WILL CONTINUE TO MONITOR PT CLOSELY AND NOTIFY MD FOR ANY SIGNIFICANT CHANGES.
[2017-02-11] MEDS: CEFTRIAXONE 1 G in IV D5W 50 ML IV SCH (10:34)
[2017-02-11 13:32] LABS: CALCIUM, SERUM 8.6 mg/dL (8.5-10.1); CREATININE 2.7 mg/dL (0.6-1.3); POTASSIUM 3.8 mmol/L (3.5-5.1)
[2017-02-11 13:33] LABS: BASOPHILS % (AUTO) 0.3 % (0.0-2.0); EOSINOPHILS # (AUTO) 0.1 /CMM (0.0-0.7); EOSINOPHILS % (AUTO) 0.8 % (0.0-6.0); HEMATOCRIT 36 % (33-45); HEMOGLOBIN 11.8 g/dL (11.5-14.8); LYMPHOCYTES # (AUTO) 0.9 /CMM (0.8-4.8); LYMPHOCYTES % (AUTO) 11.9 % (20.0-44.0); MEAN CORPUSCULAR HEMOGLOBIN 30 PG (26.0-33.0); MEAN CORPUSCULAR HGB CONC 33 g/dl (31.0-36.0); MEAN CORPUSCULAR VOLUME 90 fL (82-100); MONOCYTES # (AUTO) 1.1 /CMM (0.1-1.30); NEUTROPHILS # (AUTO) 5.6 /CMM (1.8-8.9); PLATELET COUNT (AUTO) 106 /CMM (150-450); RDW COEFFICIENT OF VARIATION 16.1 (11.5-15.0); RED BLOOD CELL COUNT(AUTO) 3.94 MIL/uL (4.0-5.2); WHITE BLOOD COUNT (AUTO) 7.6 K/uL (4.3-11.0)
--- NOTE | 2017-02-11 14:00 | NUR ---
RN NOTES PT STABLE, TOLEAING TF WELL. SUPPORTIVE FAMILY AT THE BEDSIDE, CONTINUE TO MONITOR
[2017-02-11] MEDS: MICAFUNGIN SODIUM 100 MG in IV NS 0.9% 100 ML IV SCH (16:34)
[2017-02-11] MEDS ORDERED: SECONDARY IV SET 1 EA INFUS.SET MC ONE (16:40)
--- NOTE | 2017-02-11 18:10 | NUR ---
RN NOTES PT REMAIN THE SAME , RESPIRATION EVEN AND UNLABORED , ON TELE SR , TOLERATING TF WELL, NO RESIDUAL NOTED, MEDICATED PER MD ORDER , SR UP x3, CALL LIGHT WITHIN EASY REACH , NO SIGNIFICANT CHANGES NOTED ON THIS SHIFT .
--- NOTE | 2017-02-11 19:15 | NUR ---
RN INITIAL NOTES RECEIVED PATIENT LETHARGIC AT THIS TIME. PATIENT ABLE TO OPEN EYES WITH STIMULUS. ON 4LPM OF O2 VIA NC, RESPIRATION IS OBSERVED TO BE EVEN AND UNLABORED WITH NO DISTRESS. AIRWAY KEPT CLEAR AND PATENT. SR ON TELE WITH HR OF 70s. LYNNE AV SHUNT INTACT, (+) BRUIT AND THRILL. FLIP MIDLINE INTACT AND PATENT, GOOD BLOOD RETURN NOTED. L EJ G22, INTACT AND PATENT, NO SIGNS OF INFILTRATION. PATIENT'S GT PLACEMENT VERIFIED, MINIMAL AMOUNT OF RESIDUAL NOTED. HOB ELEVATED. PATIENT REPOSITIONED FOR COMFORT. SAFETY AND COMFORT ENSURED. BED IN LOW AND LOCKED POSITION. CALL LIGHT IN REACH. WILL MONITOR.
--- NOTE | 2017-02-11 20:00 | NUR ---
RN NOTES PATIENT'S GASTRIC RESIDUAL NOTED TO BE 200CC. PATIENT'S GT FEEDING HELD AT THIS TIME, FLUSHED TUBING FOR PATENCY. ALL DUE MEDS GIVEN ORDERED, INCLUDING PATIENT'S SCHEDULED REGLAN. HOB ELEVATED. WILL MONITOR CLOSELY.
[2017-02-11] MEDS: hydrALAZINE HCL IV 20 MG VIAL IV PRN (20:48)
[2017-02-11] MEDS: LATANOPROST EYE DROP 0.005% 2.5 ML BOTTLE EACHEYE SCH (21:07)
--- NOTE | 2017-02-11 22:00 | NUR ---
RN NOTES PATIENT'S GASTRIC RESIDUAL RECHECKED AND NOTED TO BE 150CC. GT FEEDING STILL ON HOLD. HOB ELEVATED. WILL MONITOR.
[2017-02-12] VITALS: BP 172/64
--- NOTE | 2017-02-12 | NUR ---
RN NOTES PATIENT'S GASTRIC RESIDUAL RECHECKED AND NOTED TO BE 50CC, RESUMED GT FEEDING ORDERED. QG=[id number], 2u OF INSULIN GIVEN ORDERED.
[2017-02-12] MEDS: BLOOD SUGAR DIAGNOSTIC 1 EACH STRIP IN SCH ×5 (00:54→23:52)
[2017-02-12] MEDS: INSULIN REGULAR, HUMAN 100 UNIT/ML 3 ML VIAL SQ PRN ×3 (00:54→23:53)
[2017-02-12] MEDS: METOCLOPRAMIDE HCL 10 MG/2 ML VIAL IV SCH ×4 (02:55→22:13)
[2017-02-12] MEDS: RENAL NOVASOURCE 1,000 ML BOTTLE GT PRN (02:55)
[2017-02-12 04:00] VITALS: BP 176/65
--- NOTE | 2017-02-12 04:00 | NUR ---
RN NOTES AM CARE RENDERED, BED BATH PROVIDED. REMAINS ON 4LPM OF O2 VIA NC, RESPIRATION IS EVEN AND UNLABORED, NO SOB NOTED. WOUND TREATMENT RENDERED ORDERED. PATIENT TURNED AND REPOSITIONED. GT FEEDING INFUSING WELL, NO GASTRIC RESIDUAL NOTED AT THIS TIME. SAFETY AND COMFORT ENSURED. BED IN LOW AND LOCKED POSITION. REMAINS SR ON TELE. PATIENT OBSERVED TO BE MORE ALERT AT THIS TIME, ABLE TO OPEN EYES SPONTANEOUSLY, NOTED WITH GOOD ROM ON R ARM.
[2017-02-12] MEDS: ALBUTEROL HALF STRENGTH 1.25 MG/3 ML VIAL.NEB NEB SCH ×6 (04:18→23:20)
[2017-02-12] MEDS: IPRATROPIUM NEB FS 0.5 MG/2.5 ML AMPUL.NEB NEB SCH ×6 (04:18→23:20)
[2017-02-12] MEDS: hydrALAZINE HCL IV 20 MG VIAL IV PRN ×2 (04:26→16:02)
--- NOTE | 2017-02-12 06:55 | NUR ---
RN CLOSING NOTES PATIENT WITH NO ACUTE DISTRESS OBSERVED OVERNIGHT. SAFETY AND COMFORT ENSURED. ENDORSED CARE TO AM NURSE ACCORDINGLY.
--- NOTE | 2017-02-12 07:37 | NUR ---
WILLIAM RN NOTE RCVD PT RESTING IN BED, NON-VERBAL, ABLE TO OPEN EYES TO NAME. SR ON TELE. TOLERATING O2 VIA NC. PEG PLACEMENT VERIFIED BY AUSCULTATION 300 ML RESIDUAL OBTAINED. TUBE FEEDING STOPPED. IV SITES C/D/I/PATENT. NO S/O INFILTRATION OR PHLEBITIS OBSERVED. CALL LIGHT WITHIN REACH. BED IN LOW AND LOCKED POSITION. WILL CONTINUE TO MONITOR FOR SAFETY AND COMFORT.
[2017-02-12] MEDS: ACETYLCYSTEINE 10% SOLN 400 MG/4 ML VIAL NEB SCH ×3 (07:40→23:20)
[2017-02-12 08:00] VITALS: BP 141/65
[2017-02-12] MEDS: LINEZOLID 600 MG TABLET GT SCH ×2 (08:36→22:13)
[2017-02-12] MEDS: CHOLECALCIFEROL 1,000 UNIT TABLET (VIT D3) GT SCH (08:36)
[2017-02-12] MEDS: AMIODARONE HCL 200 MG TABLET PO SCH ×3 (08:36→16:01)
[2017-02-12] MEDS: ZINC SULFATE 220 MG CAPSULE GT SCH (08:36)
[2017-02-12] MEDS: VIT B CMPLX 3/FA/VIT C/BIOTIN 1 TAB TABLET GT SCH (08:36)
[2017-02-12] MEDS: PANTOPRAZOLE 40 MG VIAL IV SCH ×2 (08:37→16:00)
[2017-02-12] MEDS: LACTOBACILLUS RHAMNOSUS GG 1 EACH CAP.SPRINK GT SCH ×2 (08:37→16:00)
[2017-02-12] MEDS: ASCORBIC ACID 500 MG TABLET GT SCH (08:37)
[2017-02-12] MEDS: LEVOTHYROXINE INJ 100 MCG VIAL IV SCH (08:37)
[2017-02-12] MEDS: TIMOLOL 0.25% SOL OPHTH 10 ML BOTTLE EACHEYE SCH ×2 (08:38→16:04)
[2017-02-12] MEDS: prednisoLONE ACETATE 1% SUSP 5 ML BOTTLE EACHEYE SCH (08:39)
--- NOTE | 2017-02-12 09:21 | NUR ---
WILLIAM RN NOTE DR. VASQUEZ AT BEDSIDE INFORMED OF PT'S HIGH RESIDUAL, REGLAN ON BOARD. MS ACKNOWLEDGED. NO NEW ORDERS RCVD.
[2017-02-12] MEDS: CEFTRIAXONE 1 G in IV D5W 50 ML IV SCH (09:38)
[2017-02-12] MEDS: IV NS 0.9% 250 ML IV PRN (09:39)
[2017-02-12] MEDS ORDERED: SECONDARY IV SET 1 EA INFUS.SET MC ONE (09:46)
[2017-02-12 12:00] VITALS: BP 169/79
--- NOTE | 2017-02-12 12:21 | NUR ---
WILLIAM RN NOTE PT'S SON AT BEDSIDE UPDATED ON PT'S CONDITION, HIS QUESTIONS WERE ANSWERED.
[2017-02-12 16:00] VITALS: BP 161/66
[2017-02-12] MEDS: MICAFUNGIN SODIUM 100 MG in IV NS 0.9% 100 ML IV SCH (16:01)
--- NOTE | 2017-02-12 18:53 | NUR ---
ENDING WILLIAM RN NOTE NO CHANGE IN PT'S CONDITION. PT RECEIVING DIALYSIS AT THIS TIME. VITAL SIGNS STABLE. PT'S SON AT BEDSIDE. TUBE FEEDING RESTARTED AT 1600 NO RESIDUAL AT THAT TIME. LAST ASSESSMENT RESIDUAL OF 60ML OBTAINED THIS WILL BE ENDORSED TO FOREIGN CLERK RN. PT'S CARE WILL BE ENDORSED TO FOREIGN CLERK RN FOR CONTINUITY OF CARE.
--- NOTE | 2017-02-12 19:00 | NUR ---
RN INITIAL NOTES RECEIVED PATIENT WITH HD ONGOING. PATIENT WITH STABLE VS AT THIS TIME. HD NURSE AT BEDSIDE. SON ALSO AT BEDSIDE. PATIENT ON 4LPM OF O2 VIA NC, RESPIRATION IS EVEN AND UNLABORED, NO DISTRESS. 100% O2 SATURATION. SR ON TELE, HR OF 75. FLIP MIDLINE INTACT AND PATENT, ON TKO. L EJ INTACT AND PATENT, NO SIGNS OF INFILTRATION. GT RESIDUAL CHECKED, NOTED TO BE 90CC, ENSURED HOB ELEVATION. WILL MONITOR CLOSELY. SAFETY AND COMFORT ENSURED.
--- NOTE | 2017-02-12 19:38 | NUR ---
RN NOTES DIALYSIS COMPLETED, TOLERATED PROCEDURE WELL. 1.8L OUTPUT. VS: 162/75, 78. NO DISTRESS. SON AT BEDSIDE.
[2017-02-12 20:00] VITALS: BP 160/64
--- NOTE | 2017-02-12 21:00 | NUR ---
RN NOTES patient had a Right chest tube placement for pneumothorax, inserted on 02/04/17 and was removed on 02/10/17. dressing remains intact since removal of chest tube, was assessed today (02/12/17), and noted incision site to be open. minimal drainage noted, pressure dressing applied. wound consult ordered.
--- NOTE | 2017-02-12 22:00 | NUR ---
RN NOTES GASTRIC RESIDUAL NOTED TO BE 150CC, HELD GT FEEDING. ALL DUE MEDS GIVEN, SCHEDULED REGLAN INCLUDED. WILL MONITOR.
[2017-02-12] MEDS: LATANOPROST EYE DROP 0.005% 2.5 ML BOTTLE EACHEYE SCH (22:14)
[2017-02-13] VITALS: BP 174/72
--- NOTE | 2017-02-13 | NUR ---
RN NOTES GASTRIC RESIDUAL RECHECKED, 30CC. RESUMED FEEDING ORDERED OF BENJI AT 40CC/HR. WILL MONITOR CLOSELY. HOB ELEVATED.
[2017-02-13] MEDS: hydrALAZINE HCL IV 20 MG VIAL IV PRN (00:25)
[2017-02-13] MEDS: ALBUTEROL HALF STRENGTH 1.25 MG/3 ML VIAL.NEB NEB SCH ×4 (02:25→15:30)
[2017-02-13] MEDS: IPRATROPIUM NEB FS 0.5 MG/2.5 ML AMPUL.NEB NEB SCH ×4 (02:25→15:30)
[2017-02-13] MEDS: METOCLOPRAMIDE HCL 10 MG/2 ML VIAL IV SCH ×3 (02:53→14:01)
--- NOTE | 2017-02-13 03:00 | NUR ---
RN NOTES GASTRIC RESIDUAL RECHECKED, NOTED TO BE 200CC. GT FEEDING STOPPED. REGLAN GIVEN ORDERED. GT FLUSHED FOR PATENCY. CN MADE AWARE.
[2017-02-13 04:00] VITALS: BP_SYST 156; BP_SYST 159; BP_DIAS 61
[2017-02-13] MEDS: RENAL NOVASOURCE 1,000 ML BOTTLE GT PRN (05:48)
[2017-02-13] MEDS: BLOOD SUGAR DIAGNOSTIC 1 EACH STRIP IN SCH ×3 (05:49→17:45)
[2017-02-13] MEDS: INSULIN REGULAR, HUMAN 100 UNIT/ML 3 ML VIAL SQ PRN ×3 (05:51→17:57)
--- NOTE | 2017-02-13 05:56 | NUR ---
RN NOTES PATIENT'S GASTRIC RESIDUAL IS 40CC. GT FEEDING RESUMED. YJ=[id number].
[2017-02-13 07:02] LABS: BASOPHILS % (AUTO) 0.4 % (0.0-2.0); EOSINOPHILS % (AUTO) 0.6 % (0.0-6.0); HEMATOCRIT 37 % (33-45); HEMOGLOBIN 12.2 g/dL (11.5-14.8); LYMPHOCYTES # (AUTO) 0.9 /CMM (0.8-4.8); LYMPHOCYTES % (AUTO) 14.5 % (20.0-44.0); MEAN CORPUSCULAR HEMOGLOBIN 30 PG (26.0-33.0); MEAN CORPUSCULAR HGB CONC 33 g/dl (31.0-36.0); MEAN CORPUSCULAR VOLUME 90 fL (82-100); MONOCYTES # (AUTO) 1.3 /CMM (0.1-1.30); MONOCYTES % (AUTO) 20.2 % (2.0-12.0); NEUTROPHILS % (AUTO) 64.3 % (43.0-81.0); PLATELET COUNT (AUTO) 127 /CMM (150-450); RED BLOOD CELL COUNT(AUTO) 4.08 MIL/uL (4.0-5.2); WHITE BLOOD COUNT (AUTO) 6.2 K/uL (4.3-11.0)
[2017-02-13 07:22] LABS: CALCIUM, SERUM 8.8 mg/dL (8.5-10.1); CREATININE 2.1 mg/dL (0.6-1.3); MAGNESIUM 2.1 mg/dL (1.8-2.4); POTASSIUM 3.5 mmol/L (3.5-5.1)
[2017-02-13] MEDS ORDERED: SECONDARY IV SET 1 EA INFUS.SET MC ONE (07:40)
[2017-02-13] MEDS: ACETYLCYSTEINE 10% SOLN 400 MG/4 ML VIAL NEB SCH ×2 (07:58→15:30)
[2017-02-13 08:00] VITALS: BP 151/70
[2017-02-13] MEDS: prednisoLONE ACETATE 1% SUSP 5 ML BOTTLE EACHEYE SCH (08:48)
[2017-02-13] MEDS: TIMOLOL 0.25% SOL OPHTH 10 ML BOTTLE EACHEYE SCH ×2 (08:48→17:45)
[2017-02-13] MEDS: LEVOTHYROXINE INJ 100 MCG VIAL IV SCH (08:49)
[2017-02-13] MEDS: LACTOBACILLUS RHAMNOSUS GG 1 EACH CAP.SPRINK GT SCH ×2 (08:49→17:44)
[2017-02-13] MEDS: ZINC SULFATE 220 MG CAPSULE GT SCH (08:49)
[2017-02-13] MEDS: PANTOPRAZOLE 40 MG VIAL IV SCH ×2 (08:49→17:44)
[2017-02-13] MEDS: CHOLECALCIFEROL 1,000 UNIT TABLET (VIT D3) GT SCH (08:49)
[2017-02-13] MEDS: ASCORBIC ACID 500 MG TABLET GT SCH (08:49)
[2017-02-13] MEDS: LINEZOLID 600 MG TABLET GT SCH (08:49)
[2017-02-13] MEDS: VIT B CMPLX 3/FA/VIT C/BIOTIN 1 TAB TABLET GT SCH (08:49)
[2017-02-13] MEDS: AMIODARONE HCL 200 MG TABLET PO SCH (08:49)
[2017-02-13] MEDS: HYDROGEL DRESSING 90 GM TUBE TP SCH (08:50)
[2017-02-13] MEDS: CEFTRIAXONE 1 G in IV D5W 50 ML IV SCH (09:41)
[2017-02-13] MEDS ORDERED: CLONIDINE HCL 0.3 MG/24H PTWK 1 EA PATCH TD SCH (11:00)
[2017-02-13 11:22] LABS: BAND % (MANUAL) 1 % (0.0-5.0); LYMPHOCYTES % (MANUAL) 9 % (16-48); MONOCYTES % (MANUAL) 22 % (0-11.0); NEUTROPHILS % (MANUAL) 68 (42-76)
[2017-02-13] MEDS ORDERED: LEVO150T PO (12:13)
[2017-02-13] MEDS ORDERED: LACT1CAP72 GT (12:13)
[2017-02-13 16:00] VITALS: BP 156/69
[2017-02-13] MEDS ORDERED: AMIODARONE HCL 200 MG TABLET PO SCH (17:00)
[2017-02-13 17:45] VITALS: BP 156/69
[2017-02-13] MEDS: ACETAMINOPHEN 650 MG/20.3 ML UDC GT PRN (17:59)
--- NOTE | 2017-02-13 18:30 | NUR ---
WILLIAM Report given to Michelle COLON of [facility]. Dr. Kiran aware of fever and patient concern. Right chest wall incision still open and secured with steri strips.
== END 2017-02-13 19:46 | DRG 720 ==
LOC: ER 20:54 → ICU 02-01 00:42 → TELE-TD 02-11 10:08 → MEDSG1 02-13 10:35
PROVIDERS: ADMIT Internal Medicine; ATTEND Internal Medicine
PROC: 5A1D60Z (ICD-10-PCS; principal; 2017-02-01)
PROC: 0BH18EZ Insertion of Endotracheal Airway into Trachea, Via Natural or Artificial Opening Endoscopic (ICD-10-PCS; principal; 2017-02-01)
PROC: 05H533Z Insertion of Infusion Device into Right Subclavian Vein, Percutaneous Approach (ICD-10-PCS; principal; 2017-02-01)
PROC: 5A1955Z Respiratory Ventilation, Greater than 96 Consecutive Hours (ICD-10-PCS; principal; 2017-02-01)
PROC: 30233N1 Transfusion of Nonautologous Red Blood Cells into Peripheral Vein, Percutaneous Approach (ICD-10-PCS; 2017-02-02)
PROC: 0B9G8ZX Drainage of Left Upper Lung Lobe, Via Natural or Artificial Opening Endoscopic, Diagnostic (ICD-10-PCS; 2017-02-03)
PROC: 0W9930Z Drainage of Right Pleural Cavity with Drainage Device, Percutaneous Approach (ICD-10-PCS; 2017-02-05)
PROC: 0D20XUZ Change Feeding Device in Upper Intestinal Tract, External Approach (ICD-10-PCS; 2017-02-08)
DX: A41.9 Sepsis, unspecified organism (principal); J69.0 Pneumonitis due to inhalation of food and vomit; I21.4 Non-ST elevation (NSTEMI) myocardial infarction; J96.01 Acute respiratory failure with hypoxia; R65.21 Severe sepsis with septic shock; G93.40 Encephalopathy, unspecified; L89.159 Pressure ulcer of sacral region, unspecified stage; S27.0XXA Traumatic pneumothorax, initial encounter; J90 Pleural effusion, not elsewhere classified; N18.6 End stage renal disease; E44.0 Moderate protein-calorie malnutrition; I12.0 Hypertensive chronic kidney disease with stage 5 chronic kidney disease or end stage renal disease; E11.22 Type 2 diabetes mellitus with diabetic chronic kidney disease; E87.70 Fluid overload, unspecified; Z99.2 Dependence on renal dialysis; K21.9 Gastro-esophageal reflux disease without esophagitis; F09 Unspecified mental disorder due to known physiological condition; F03.90 Unspecified dementia, unspecified severity, without behavioral disturbance, psychotic disturbance, mood disturbance, and anxiety; E03.9 Hypothyroidism, unspecified; E87.6 Hypokalemia; D63.8 Anemia in other chronic diseases classified elsewhere; E88.09 Other disorders of plasma-protein metabolism, not elsewhere classified; T17.890A Other foreign object in other parts of respiratory tract causing asphyxiation, initial encounter; J98.11 Atelectasis; Z68.1 Body mass index [BMI] 19.9 or less, adult; H40.9 Unspecified glaucoma; H10.9 Unspecified conjunctivitis; R13.10 Dysphagia, unspecified; R59.0 Localized enlarged lymph nodes; X58.XXXA Exposure to other specified factors, initial encounter; Y93.9 Activity, unspecified; Y99.9 Unspecified external cause status; I47.1 Supraventricular tachycardia; K94.23 Gastrostomy malfunction; Y82.9 Unspecified medical devices associated with adverse incidents; Y92.129 Unspecified place in nursing home as the place of occurrence of the external cause; B37.49 Other urogenital candidiasis; N39.0 Urinary tract infection, site not specified; B95.2 Enterococcus as the cause of diseases classified elsewhere; Z16.21 Resistance to vancomycin; I48.0 Paroxysmal atrial fibrillation; L89.899 Pressure ulcer of other site, unspecified stage; Y83.3 Surgical operation with formation of external stoma as the cause of abnormal reaction of the patient, or of later complication, without mention of misadventure at the time of the procedure; Z66 Do not resuscitate
CPT/HCPCS: 31623; 31720; 36415; 36569; 36600; 43246; 71010-TC; 71250-TC; 80048-TC; 80053-TC; 80076-TC; 80202-TC; 81000-TC; 82728-TC; 82803-TC; 82962-TC; 83540-TC; 83605-TC; 83735-TC; 83880; 84100-TC; 84439-TC; 84443-TC; 84484-TC; 85025-TC; 85610-TC; 85730-TC; 86850-TC; 86880-TC; 86921-TC; 87040-TC; 87070-TC; 87081-TC; 87086-TC; 87102-TC; 87116; 87186-TC; 87206; 88305-TC; 88312-TC; 90935-TC; 94002-TC; 94003-TC; 94668-TC; 94762-TC; 94799-TC; 99082-TC; A4216; A4606; A6248; A6253; A6402; A6403; C9113; J0282; J0360; J0696; J0885; J1170; J1644; J1650; J1815; J2020; J2248; J2370; J2543; J2704; J2765; J3010; J3370; J3480; J3490; J7030; J7040; J7050; J7060; P9016-BL; P9047; Z7610